=== PATIENT | male | born 1955 | race Caucasian/White ===

== ENCOUNTER → 2017-02-18 | Outpatient (REF) | payer OTHER ==
[2017-02-18 12:44] LABS: ANION GAP 4 MEQ/L (8-16); BLOOD UREA NITROGEN 18 MG/DL (7-18); CALCIUM LEVEL 9.1 MG/DL (8.8-10.2); CARBON DIOXIDE LEVEL 36 MEQ/L (21-32); CHLORIDE LEVEL 105 MEQ/L (98-107); CREATININE FOR GFR 0.93 MG/DL (0.70-1.30); GLOMERULAR FILTRATION RATE > 60.0 (>49); GLUCOSE, FASTING 95 MG/DL (80-110); POTASSIUM SERUM 4.1 MEQ/L (3.5-5.1); SODIUM LEVEL 145 MEQ/L (136-145)
== END ==
LOC: M LABDRAW1 11:59
PROVIDERS: ATTEND Physician Assistant
DX: Z01.818 Encounter for other preprocedural examination (principal); Z79.899 Other long term (current) drug therapy

== ENCOUNTER → 2017-07-18 | Outpatient (CLI) | payer OTHER ==
--- NOTE | 2017-07-19 11:59 | SLEEPCENT ---
DATE OF PROCEDURE: 07/18/2017 REQUESTING PROVIDER: Katlyn Ott NP INTERPRETATION: Nocturnal polysomnography was performed for evaluation of sleep physiology in this patient with a history of excessive somnolence and nonrestorative sleep. 7 hours and 14 minutes of data were reviewed. There were 320 minutes of sleep identified. Sleep latency was normal at 13 minutes. Rapid eye movement (REM) latency was normal at 90 minutes. Sleep architecture showed fragmentation, poor sleep progression. There were three REM cycles noted. Overall sleep efficiency was 74.7%. Electrocardiogram (EKG) showed an irregular rhythm consistent with atrial fibrillation, ventricular response rate 75 beats per minute. Electroencephalogram (EEG) showed fairly normal waveforms for awake and sleep stages. There were 239 respiratory events identified of 10 seconds in duration or greater for an apnea-hypopnea index of 44.7. The events were not exclusive to sleep stage nor body posture. Arousals from respiratory events occurred 27.7 times per hour. Oxygen desaturations were seen into the 80s. Minimal limb activity was noted. There was snoring noted over the course of the study. The remaining measures of sleep physiology were normal. IMPRESSION: Severe obstructive sleep apnea syndrome (G47.33). Apnea-hypopnea index of 44.7. RECOMMENDATIONS: The patient should be encouraged to return to the sleep disorder center for pressure therapy. In the interim, alcohol and sedative avoidance should be practiced and caution exercised during the operation of motor vehicles.
== END ==
LOC: M SLEEP 19:40
PROVIDERS: ATTEND Nurse Practitioner Adult Health
DX: G47.30 Sleep apnea, unspecified (principal)

== ENCOUNTER 2017-08-09 16:45 | Emergency (ER) | payer OTHER ==
[~2017-08-09] VITALS: Ht 167.6 cm; Wt 113.6 kg
[2017-08-09] MEDS ORDERED: ATOR40TA75 (16:57)
[2017-08-09] MEDS ORDERED: LEVE1INJ5 (16:57)
[2017-08-09] MEDS ORDERED: IRBE75TA5 (16:57)
[2017-08-09] MEDS ORDERED: MODU5TA (16:57)
[2017-08-09] MEDS ORDERED: XARE20TA (16:57)
[2017-08-09] MEDS ORDERED: LUTE20CA PO (16:57)
[2017-08-09] MEDS ORDERED: [UNRECOGNIZED DRUG - OTHER] (16:57)
[2017-08-09] MEDS ORDERED: PIOG30TA4 (16:57)
[2017-08-09] MEDS ORDERED: SODI650T (16:57)
[2017-08-09] MEDS ORDERED: FISH100049 PO (16:57)
[2017-08-09] MEDS ORDERED: BYET10IN2 (16:57)
[2017-08-09] MEDS ORDERED: NADO80TA (16:57)
[2017-08-09] MEDS ORDERED: ASPI81TA85 PO (16:58)
[2017-08-09] MEDS ORDERED: VITASPR PO (16:58)
[2017-08-09 18:11] LABS: BASO % 0.2 % (0.0-1.0); EOS # 0.1 10^3/uL (0.0-0.50); EOS % 0.8 % (0.0-3.0); IMMATURE GRANULOCYTE % 0.1 % (0-0); LYMPH % 10.3 % (24.0-44.0); MEAN CORPUSCULAR HGB CONC 34.4 g/dl (32.0-36.5); MEAN CORPUSCULAR VOLUME 87.2 fl (80.0-96.0); MONO # 0.6 10^3/uL (0.0-0.8); MONO % 6.5 % (0.0-5.0); NEUTROPHILS # 7.9 10^3/uL (1.8-7.7); NEUTROPHILS % 82.1 % (36.0-66.0); PLATELET COUNT, AUTOMATED 161 10^3/uL (150-450); RED CELL DISTRIBUTION WIDTH 14.1 % (11.5-14.5); WHITE BLOOD COUNT 9.6 10^3/uL (4.0-10.0)
[2017-08-09 18:39] LABS: ALBUMIN 3.8 GM/DL (3.2-5.2); ALBUMIN/GLOBULIN RATIO 1.36 (1.00-1.93); ALKALINE PHOSPHATASE 101 U/L (45-117); ALT/SGPT 34 U/L (12-78); ANION GAP 10 MEQ/L (8-16); AST/SGOT 27 U/L (7-37); BILIRUBIN,DIRECT 0.2 MG/DL (0.0-0.2); BILIRUBIN,TOTAL 1.1 MG/DL (0.2-1.0); BLOOD UREA NITROGEN 19 MG/DL (7-18); CALCIUM LEVEL 9.1 MG/DL (8.8-10.2); CARBON DIOXIDE LEVEL 26 MEQ/L (21-32); CHLORIDE LEVEL 106 MEQ/L (98-107); CREATININE FOR GFR 1.11 MG/DL (0.70-1.30); GLOMERULAR FILTRATION RATE > 60.0 (>49); GLUCOSE, FASTING 135 MG/DL (80-110); POTASSIUM SERUM 3.5 MEQ/L (3.5-5.1); SODIUM LEVEL 142 MEQ/L (136-145); TOTAL PROTEIN 6.6 GM/DL (6.4-8.2)
[2017-08-09 18:40] LABS: OSMOLALITY SERUM 296 MOSM/KG (280-301)
--- NOTE | 2017-08-09 18:43 | REP ---
AP PORTABLE CHEST: 08/09/2017. Clinical history: Altered mental status. Findings: No prior study. Lordotic AP portable chest performed. Heart size exaggerated by lordotic and AP projections with portable technique. No gross effusion. There is elevation of the right diaphragm. The aorta is without aneurysm. Airway midline. No abnormal widening the mediastinum. There is venous hypertension without pulmonary edema. No dense consolidation or mass. Impression: 1. Pulmonary venous hypertension, the cardiac silhouette mildly enlarged with some exaggeration by lordotic projection. No jimi edema, effusion or dense consolidation. Limited evaluation of the posterior and lower lung zones because of the lordotic portable technique. PA and lateral may be helpful when the patient is able. Signed by Justyn Dinero MD 08/09/2017 08:06 P
[2017-08-09 19:54] VITALS: BP 118/56
--- NOTE | 2017-08-11 04:28 | ECGEPIP ---
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
== END 2017-08-09 19:55 | disposition home or self-care (01) ==
LOC: M ED 16:45
DX: E16.1 Other hypoglycemia (principal); I48.91 Unspecified atrial fibrillation; I45.10 Unspecified right bundle-branch block; R94.31 Abnormal electrocardiogram [ECG] [EKG]; E11.9 Type 2 diabetes mellitus without complications; Z79.82 Long term (current) use of aspirin; Z79.4 Long term (current) use of insulin; Z79.899 Other long term (current) drug therapy; Z88.2 Allergy status to sulfonamides

== ENCOUNTER → 2017-09-08 | Outpatient (CLI) | payer OTHER | LOC: M SLEEP 19:51 | DX: G47.33 Obstructive sleep apnea (adult) (pediatric) (principal) | CPT/HCPCS: 95811 ==

== ENCOUNTER → 2017-11-24 | Outpatient (REF) | payer OTHER ==
[2017-11-24 13:44] LABS: APPEARANCE, URINE TURBID (CLEAR); BACTERIA, URINE AUTO NEGATIVE (NEGATIVE); BILIRUBIN, URINE AUTO NEGATIVE (NEGATIVE); BLOOD, URINE BLOOD NEGATIVE (NEGATIVE); COLOR, URINE AMBER (YELLOW); GLUCOSE, URINE (UA) AUTO NEGATIVE (NEGATIVE); KETONE, URINE AUTO TRACE mg/dL (NEGATIVE); LEUKOCYTE ESTERASE, URINE AUTO TRACE (NEGATIVE); MUCUS, URINE SMALL (NEGATIVE); NITRITE, URINE AUTO NEGATIVE (NEGATIVE); PROTEIN, URINE AUTO NEGATIVE (NEGATIVE); RBC, URINE AUTO 3 /HPF (0-3); SPECIFIC GRAVITY URINE AUTO 1.025 (1.002-1.035); SQUAMOUS EPITHELIAL CELL UR AU 1 /HPF (0-6); UROBILINOGEN, URINE AUTO 0.2 mg/dL (0.0-2.0); WBC, URINE AUTO 2 /HPF (0-3)
== END ==
LOC: M LAB REF 13:25
DX: R31.9 Hematuria, unspecified (principal)
CPT/HCPCS: 81001

== ENCOUNTER → 2018-05-09 | Outpatient (REF) | payer OTHER ==
[2018-05-09 14:40] LABS: ATYPICAL LYMPH 8 % (0-5); BANDS 4 % (< 11); EOSINOPHILS 1 % (0-5); LYMPHOCYTES 4 % (16-52); MONOCYTES 14 % (0-8); NEUTROPHILS 69 % (35-75)
[2018-05-09 14:41] LABS: GIANT PLATELETS 1+; PLATELET ESTIMATE DECREASED (NORMAL)
== END ==
LOC: M LAB REF 12:01
DX: N39.0 Urinary tract infection, site not specified (principal)
CPT/HCPCS: 85007

== ENCOUNTER → 2018-05-26 | Outpatient (REF) | payer OTHER ==
[2018-05-26 11:51] LABS: BASO % 0.5 % (0.0-1.0); EOS # 0.1 10^3/uL (0.0-0.50); EOS % 1.3 % (0.0-3.0); HEMATOCRIT 49.2 % (42.0-52.0); HEMOGLOBIN 16.1 g/dl (13.5-17.5); IMMATURE GRANULOCYTE % 0.5 % (0-3.0); LYMPH # 1.3 10^3/uL (1.5-4.5); LYMPH % 17.3 % (24.0-44.0); MEAN CORPUSCULAR HEMOGLOBIN 29.3 pg (27.0-33.0); MEAN CORPUSCULAR HGB CONC 32.7 g/dl (32.0-36.5); MEAN CORPUSCULAR VOLUME 89.6 fl (80.0-96.0); MONO # 0.7 10^3/uL (0.0-0.8); MONO % 9.7 % (0.0-5.0); NEUTROPHILS # 5.3 10^3/uL (1.8-7.7); NEUTROPHILS % 70.7 % (36.0-66.0); PLATELET COUNT, AUTOMATED 211 10^3/uL (150-450); RED BLOOD COUNT 5.49 10^6/uL (4.30-6.10); RED CELL DISTRIBUTION WIDTH 14.5 % (11.5-14.5); WHITE BLOOD COUNT 7.6 10^3/uL (4.0-10.0)
[2018-05-26 12:44] LABS: ERYTHROCYTE SEDIMENTATION RATE 5 mm/hr (0-20)
[2018-05-26 14:21] LABS: C REACTIVE PROTEIN QUANTITATIV < 0.30 MG/DL (0.00-0.30); RHEUMATOID FACTOR QUANT < 10.0 IU/ML (<15.0)
[2018-05-26 14:21] LABS: URIC ACID 5.8 MG/DL (3.5-7.2)
[2018-05-27 14:23] LABS: ANTINUCLEAR ANTIBODIES DIRECT Negative (Negative); Lyme Disease IgG/IgM Antibodie <0.91 ISR (0.00-0.90); Lyme Disease IgM Ab Quantitati <0.80 index (0.00-0.79)
== END ==
LOC: M LABDRAW1 10:01
DX: M17.0 Bilateral primary osteoarthritis of knee (principal)

== ENCOUNTER → 2018-08-24 | Outpatient (REF) | payer OTHER ==
[~2018-08-24] MED LIST: ASPI81TA85 PO; ATOR40TA75; BYET10IN10; FISH100049 PO; IRBE75TA5; LEVE1INJ5; LUTE20CA PO; MODU5TA; NADO80TA; PIOG1TAB37; SODI650T; VITASPR PO; XARE20TA; [UNRECOGNIZED DRUG - OTHER]
[2018-08-24 12:19] LABS: APPEARANCE, URINE CLEAR (CLEAR); BACTERIA, URINE AUTO NEGATIVE (NEGATIVE); BILIRUBIN, URINE AUTO NEGATIVE (NEGATIVE); BLOOD, URINE BLOOD NEGATIVE (NEGATIVE); COLOR, URINE YELLOW (YELLOW); GLUCOSE, URINE (UA) AUTO NEGATIVE (NEGATIVE); INR 2.16; KETONE, URINE AUTO NEGATIVE (NEGATIVE); LEUKOCYTE ESTERASE, URINE AUTO 1+ (NEGATIVE); MUCUS, URINE SMALL (NEGATIVE); NITRITE, URINE AUTO NEGATIVE (NEGATIVE); PROTEIN, URINE AUTO NEGATIVE (NEGATIVE); PROTHROMBIN TIME 24.5 SECONDS (12.1-14.4); RBC, URINE AUTO 3 /HPF (0-3); SPECIFIC GRAVITY URINE AUTO 1.024 (1.002-1.035); SQUAMOUS EPITHELIAL CELL UR AU 1 /HPF (0-6); UROBILINOGEN, URINE AUTO 0.2 mg/dL (0.0-2.0); WBC, URINE AUTO 10 /HPF (0-3)
[2018-08-24 12:20] LABS: PARTIAL THROMBOPLASTIN TIME 41.8 SECONDS (25.4-37.6)
== END ==
LOC: M LAB REF 11:42
PROVIDERS: ATTEND Family Medicine
DX: Z01.818 Encounter for other preprocedural examination (principal)

== ENCOUNTER → 2018-10-05 | Outpatient (CLI) | payer OTHER ==
[~2018-10-05] MED LIST changes: +ACTO30TA15 PO; -ATOR40TA75; +ATOR40TA75 PO; -BYET10IN10; +BYET10IN10 SC; -IRBE75TA5; +IRBE75TA5 PO; -LEVE1INJ5; +LEVE1INJ5 SC; -MODU5TA; +MODU5TA PO; -NADO80TA; +NADO80TA PO; -PIOG1TAB37; +PIOG1TAB37 PO; +PRESCAP PO; -SODI650T; +SODI650T PO; -XARE20TA; +XARE20TA PO
[2018-10-05 10:17] LABS: HEMATOCRIT 48.1 % (42.0-52.0); HEMOGLOBIN 16.1 g/dl (13.5-17.5); MEAN CORPUSCULAR HEMOGLOBIN 29.8 pg (27.0-33.0); MEAN CORPUSCULAR HGB CONC 33.5 g/dl (32.0-36.5); MEAN CORPUSCULAR VOLUME 89.1 fl (80.0-96.0); PLATELET COUNT, AUTOMATED 179 10^3/uL (150-450); WHITE BLOOD COUNT 5.2 10^3/uL (4.0-10.0)
[2018-10-05 10:37] LABS: INR 1.92; PROTHROMBIN TIME 22.3 SECONDS (12.1-14.4)
[2018-10-05 10:42] LABS: ALBUMIN 3.7 GM/DL (3.2-5.2); ALT/SGPT 23 U/L (12-78); BILIRUBIN,TOTAL 0.8 MG/DL (0.2-1.0); BLOOD UREA NITROGEN 14 MG/DL (7-18); CALCIUM LEVEL 9.2 MG/DL (8.8-10.2); CARBON DIOXIDE LEVEL 32 MEQ/L (21-32); CHLORIDE LEVEL 103 MEQ/L (98-107); CREATININE FOR GFR 0.98 MG/DL (0.70-1.30); GLOMERULAR FILTRATION RATE > 60.0 (>49); GLUCOSE, FASTING 98 MG/DL (70-100); POTASSIUM SERUM 3.9 MEQ/L (3.5-5.1); SODIUM LEVEL 141 MEQ/L (136-145); TOTAL PROTEIN 6.5 GM/DL (6.4-8.2)
[2018-10-05 10:53] LABS: ERYTHROCYTE SEDIMENTATION RATE 6 mm/hr (0-20)
--- NOTE | 2018-10-06 01:55 | REP ---
Clinical: Arthritis . Comparison: 08/09/2017 . Technique: PA and lateral. Findings: The mediastinum and cardiac silhouette are normal. The lung joy are clear and without acute consolidation, effusion, or pneumothorax. The skeletal structures are intact and normal. Impression: 1. No acute cardiopulmonary process. Electronically Signed by Rodney Hart MD 10/06/2018 01:47 A
--- NOTE | 2018-10-06 08:35 | ECGEPIP ---
Stationary ECG Study [facility] Test Date: 2018-10-05 Pat Name: BRITNI HANDLEY Department: Room: - Gender: M Pressurised Container Filler: DARLENE : 1955 Requested By: Zeyad Crum Order Number: [id number] Reading MD: Edmund Moore Measurements Intervals [place] Rate: 75 P: PA: 0 QRS: 114 QRSD: 154 T: -5 QT: 404 QTc: 452 Interpretive Statements ATRIAL FIBRILLATION MARKED RIGHT AXIS DEVIATION, LEFT POSTERIOR HEMIBLOCK RIGHT BUNDLE BRANCH BLOCK, NO CHANGE SINCE 08/09/17 Electronically Signed On 10-06-2018 8:35:27 EST by Edmund Moore
== END ==
LOC: M LAB 09:24
PROVIDERS: ATTEND Family Medicine
DX: Z01.818 Encounter for other preprocedural examination (principal); I48.91 Unspecified atrial fibrillation; E11.9 Type 2 diabetes mellitus without complications; Z87.442 Personal history of urinary calculi; Z79.01 Long term (current) use of anticoagulants; M17.11 Unilateral primary osteoarthritis, right knee

== ENCOUNTER 2018-10-17 09:56 | Inpatient (IN) | payer OTHER ==
--- NOTE | 2018-10-12 14:48 | HPE ---
DATE OF ADMISSION: 10/17/2018 This is a pleasant, 63-year-old male with continuing symptomatic right knee osteoarthritis. He consented for a right total knee arthroplasty per Dr. Neal Rice. Medical optimization was performed with Dr. Santillan on 10/09/2018. Per patient, he was cleared. I am awaiting documentation. X-rays are consistent with advanced osteoarthritis. ALLERGIES TO DRUGS: SULFA. MEDICATION LIST: - hydrocortisone cream 10% - atorvastatin calcium 40 mg - irbesartan 75 mg - nadolol 80 mg - pioglitazone HCl 30 mg - fish oil - Lutein 20 mg - Levemir 100 unit/mL - sodium bicarbonate 650 mg - Xarelto 20 mg - aspirin low dose 81 mg - potassium - PreserVision AREDS 2 - Restasis 0.05% - amiloride-hydrochlorothiazide 5-50 mg - vitamin D 2000 units. - Byetta 10 10 mcg/0.04 mL MEDICAL PROBLEM LIST: 1. Symptomatic right knee osteoarthritis. 2. Type 2 diabetes, insulin dependent. 3. Pure hypercholesteremia. 4. Essential hypertension. 5. Kidney disease. 6. Atrial fibrillation. PAST SURGICAL HISTORY: 1. Right Achilles repair. 2. Inguinal hernia repair. 3. Hernia repair both sides, one as an , the other in late 20s. 4. Kidney stone removal. 5. Carpal tunnel release. SOCIAL HISTORY: Never smoked. Rare ethanol intake. FAMILY HISTORY: Diabetes, hypertension, hypercholesteremia, heart disease, skin cancer, thyroid disease, dementia. REVIEW OF SYSTEMS: Denies chest pain, shortness of breath, dyspnea on exertion, fever, chills, malaise, upper respiratory or urinary tract symptoms. PHYSICAL EXAMINATION: Height 5, 6-1/2, blood pressure 130/62, weight 260.8, pulse 62, temperature 98.0, respirations 16. This is a pleasant well-developed, well-nourished, obese male, in no acute distress, alert and oriented times three. Mood and affect are appropriate. He is ambulating with favoring of his left lower extremity. Antalgic noted about his right. Bilateral lower extremity skin intact, benign, noninfectious looking. Compartments are supple, soft, nontender. Palpation grossly intact to light touch. Negative calf tenderness. Homans' sign, palpable cords. Bowel times four, soft, nontender. Chest rises symmetrically. Regular rate and rhythm. No dyspnea on exertion. Lungs clear. Otherwise, neck supple. Negative jugular venous distention (JVD) or bruits. Labs acquired were reviewed from 10/05/2018 included CBC, sed rate, CPA, ProTime and INR. Anion gap was 6. ProTime 22.3. Otherwise, unremarkable. Please note GFR is greater than 60. Chest x-ray: No acute cardiopulmonary process. Date of service [facility] as read by Dr. Hart. EKG: Atrial fibrillation, marked right axis deviation, left posterior hemiblock, right bundle branch block. No change since 08/09/[address] Edmund Moore. IMPRESSION: 1. Symptomatic right knee osteoarthritis. 2. Patient consented for a right total knee arthroplasty per Dr. Neal Rice. 3. Medical optimization was completed with Dr. Santillan on 10/09/2018. We are still awaiting documentation. 4. On-call to operating room (OR) 2 grams IV Kefzol in OR. 5. Sequential compressive device (SCD) and thromboembolism deterrents (TEDs) in OR. MTDD
[~2018-10-17] VITALS: Ht 167.6 cm; Wt 117.9 kg
[2018-10-17] MEDS: aMILoride 5 MG TAB PO SCH (09:00)
[2018-10-17] MEDS: hydroCHLOROthiazide 25 MG TAB PO SCH (09:00)
[2018-10-17] MEDS: NADOLOL 20MG TABLET PO SCH (09:00)
[2018-10-17] MEDS: IRBESARTAN 150 MG TAB PO SCH (09:00)
[2018-10-17] MEDS: ATORVASTATIN 20 MG TAB PO SCH (09:00)
[~2018-10-17 09:56] MED LIST changes: +BUPIVACAINE LIPOSOME/PF 1.3% 20ML VIAL (13.3MG/ML)(EXPAREL)(C9290 PER1MG) As Ordered ONE; +EPINEPHrine INJ 1 MG/ML 1ML AMP As Ordered ONE; +TRANEXAMIC ACID 100 MG/ML 10ML VIAL As Ordered ONE; +ceFAZolin 1GM INJ (J0690 PER 500MG) As Ordered ONE
[2018-10-17] MEDS ORDERED: LR 1,000 ML IV ONE (10:15)
[2018-10-17] MEDS ORDERED: TRUL10IN SC (10:38)
[2018-10-17] MEDS ORDERED: MUPI2OI (10:38)
[2018-10-17] MEDS ORDERED: ceFAZolin SOD 1 GM in D5W MINI-BAG PLUS 50 ML IV ONE (10:55)
[2018-10-17] MEDS ORDERED: MIDAZOLAM INJ 2 MG/2 ML VIAL (J2250) As Ordered ONE ×2 (11:26→11:57)
[2018-10-17] MEDS ORDERED: fentaNYL 100 MCG/2 ML INJECTION (J3010) As Ordered ONE ×2 (11:26→11:57)
[2018-10-17] MEDS ORDERED: BUPIVACAINE/DEXTROSE 0.75% 2 ML AMP As Ordered ONE (11:57)
[2018-10-17] MEDS ORDERED: ONDANSETRON 4MG/2ML VIAL (J2405) As Ordered ONE (11:57)
[2018-10-17] MEDS ORDERED: LIDOCAINE 2% INJ 100 MG/5 ML SDV (FOR ANES.) As Ordered ONE (11:57)
[2018-10-17] MEDS ORDERED: PROPOFOL 500 MG/50 ML VIAL As Ordered ONE ×2 (11:57→13:23)
--- NOTE | 2018-10-17 12:29 | IPN ---
DATE: 10/17/2018 Patient seen and examined. He wishes to go ahead with a right total knee arthroplasty. He has significant osteoarthritis, which has been refractory to conservative management. He understands the nature of this, the risks of bleeding, infection, damage to nerves, vessels, persistent pain, wear loosening, blood clots, medical problems, , among others. Preop clearance was obtained. He understands that his weight has a significant factor in the increased risk associated with knee replacement such as infection, deep venous thrombosis (DVT), medical problems, etc.
[2018-10-17] MEDS ORDERED: MIDAZOLAM INJ 2 MG/2 ML VIAL (J2250) IV ONE (12:30)
[2018-10-17] MEDS ORDERED: fentaNYL 100 MCG/2 ML INJECTION (J3010) IV ONE (12:30)
[2018-10-17] MEDS ORDERED: PHENYLephrine HCL 500 MCG/5 ML (100MCG/ML) SYRINGE (J2370) As Ordered ONE ×2 (12:51→13:08)
[2018-10-17] MEDS ORDERED: PHENYLEPHRINE INJ 10MG/ML VIAL (J2370) As Ordered ONE (13:45)
[2018-10-17] MEDS ORDERED: dexameTHASONE 10 MG/1 ML VIAL PRES.FREE (J1100) ONE (14:21)
[2018-10-17] MEDS ORDERED: ROPIvacaine 0.5% 30 ML INJECTION (J2795 PER 1MG) ONE (14:21)
[2018-10-17] MEDS ORDERED: MORPHINE 4 MG/ML 1ML VIAL/SYRINGE (J2270) IV PRN ×2 (14:30)
[2018-10-17] MEDS ORDERED: ONDANSETRON 4MG/2ML VIAL (J2405) IV PRN ×2 (14:30)
[2018-10-17] MEDS ORDERED: LR 1,000 ML IV SCH ×2 (14:30)
[2018-10-17] MEDS ORDERED: fentaNYL 100 MCG/2 ML INJECTION (J3010) IV PRN (14:30)
[2018-10-17] MEDS ORDERED: PERCOCET 5MG/325MG TAB PO PRN (14:30)
[2018-10-17] MEDS ORDERED: FLEET ENEMA PR PRN (14:30)
[2018-10-17] MEDS ORDERED: ACETAMINOPHEN TAB 650MG DOSE (2X325MG) PO PRN (14:30)
--- NOTE | 2018-10-17 15:28 | REP ---
AP AND LATERAL RIGHT KNEE, TWO VIEWS: HISTORY: Postoperative. The patient is status post right total knee replacement. There is no acute fracture or dislocation. Subcutaneous air and surgical roman are present in the overlying soft tissue. IMPRESSION: The patient is status post right total knee replacement. There is anatomic alignment. Electronically Signed by Tremayne Girard MD 10/17/2018 03:32 P
[2018-10-17 15:30] VITALS: BP 127/94
[2018-10-17 16:00] VITALS: BP 125/90
--- NOTE | 2018-10-17 16:51 | CR ---
DATE OF CONSULTATION: 10/17/2018 This is a 63-year-old male with a past medical history of diabetes, hypertension, hyperlipidemia, atrial fibrillation who presents to this hospitalization for right total knee replacement, done successfully by Dr. Rice. Reason for consultation is postoperative medical management. The patient at this time is doing well. Denies any chest pain, shortness of breath, palpitations, abdominal pain, nausea, or vomiting and did have his first postoperative meal. PAST MEDICAL HISTORY: 1. Right knee osteoarthritis. 2. Type 2 diabetes. 3. Hyperlipidemia. 4. Hypertension. 5. Atrial fibrillation. PAST SURGICAL HISTORY: 1. Right Achilles repair. 2. Inguinal hernia repair. 3. Carpal tunnel release. DRUG ALLERGIES: SULFA MEDICATIONS. FAMILY HISTORY: Noncontributory. SOCIAL HISTORY: Patient denies tobacco, alcohol, or illicit drugs. HOME MEDICATIONS: - amiloride/hydrochlorothiazide 5/50 one tablet orally daily - aspirin 81 mg orally daily - atorvastatin 40 mg orally daily - cholecalciferol 2000 units orally daily - fish oil one capsule orally daily - insulin detemir 50 units subcutaneous twice a day - irbesartan 75 mg orally daily - multivitamin one tablet orally daily - nadolol 120 mg orally daily - pioglitazone 30 mg orally daily - potassium bicarbonate 25 mg twice daily - rivaroxaban 20 mg orally daily - sodium bicarbonate 650 mg orally three times a day - Trulicity 0.75 mg subcutaneous every 7 days REVIEW OF SYSTEMS: Negative for [id number] systems except what is mentioned in the history of present illness (HPI). VITAL SIGNS: Blood pressure 127/94, heart rate 93 and regular, respiratory rate 20, temperature 96.9, oxygen saturation 99% on room air. HEAD: Atraumatic, normocephalic. NECK: Supple. No jugular venous distention (JVD). LUNGS: Clear to auscultation. S1, S2 audible. No murmurs appreciated. ABDOMEN: Soft. Positive bowel sounds. No pedal edema. NEUROLOGIC: Patient awake, alert, oriented times three. There are no labs to address at this time. IMPRESSION: 1. Right total knee replacement. 2. Atrial fibrillation. 3. Diabetes. 4. Hyperlipidemia. 5. Hypertension. PLAN: Patient at this time has no acute medical issues, so no acute intervention necessary. I will reconcile his medications and recommend morning labs. Will continue following the patient's care alongside orthopedics.
[2018-10-17 17:00] VITALS: BP 135/89
[2018-10-17] MEDS ORDERED: PILL CRUSHER/CUTTER 1 EACH XX PRN (17:00)
[2018-10-17] MEDS: SODIUM BICARBONATE 325 MG TAB PO SCH ×2 (17:43→21:16)
[2018-10-17] MEDS: PERCOCET 5MG/325MG TAB PO PRN ×2 (17:44→22:02)
[2018-10-17 18:00] VITALS: BP 146/96
[2018-10-17 19:00] VITALS: BP 131/96
[2018-10-17] MEDS ORDERED: GLUCAGON FOR INJ 1 MG VIAL (J1610) SC PRN (19:30)
[2018-10-17] MEDS ORDERED: DEXTROSE 50% 50 ML SYRINGE IV PRN (19:30)
[2018-10-17] MEDS ORDERED: GLUCOSE 4 GM CHEW TABLET PO PRN (19:30)
[2018-10-17 20:00] VITALS: BP 128/87
[2018-10-17] MEDS ORDERED: HumaLOG INSULIN (NovoLOG) PER UNIT SC SCH (21:00)
[2018-10-17] MEDS: LEVEMIR (INSULIN DETEMIR) 1 UNITS/0.01ML SC SCH (21:16)
[2018-10-17] MEDS: ceFAZolin SOD 1 GM in D5W MINI-BAG PLUS 50 ML IV SCH (22:01)
[2018-10-18 02:00] VITALS: BP 125/71
[2018-10-18] MEDS: PERCOCET 5MG/325MG TAB PO PRN ×3 (02:23→11:04)
[2018-10-18 06:00] VITALS: BP 119/76
[2018-10-18] MEDS: ceFAZolin SOD 1 GM in D5W MINI-BAG PLUS 50 ML IV SCH (06:29)
[2018-10-18 06:31] LABS: HEMOGLOBIN 14.9 g/dl (13.5-17.5); MEAN CORPUSCULAR HEMOGLOBIN 29.2 pg (27.0-33.0); MEAN CORPUSCULAR HGB CONC 33.1 g/dl (32.0-36.5); MEAN CORPUSCULAR VOLUME 88.2 fl (80.0-96.0); PLATELET COUNT, AUTOMATED 168 10^3/uL (150-450); WHITE BLOOD COUNT 13.9 10^3/uL (4.0-10.0)
[2018-10-18] MEDS ORDERED: PERC5TAB12 PO (06:46)
[2018-10-18] MEDS ORDERED: HumaLOG INSULIN (NovoLOG) PER UNIT SC SCH (07:30)
[2018-10-18] MEDS: ATORVASTATIN 20 MG TAB PO SCH (08:17)
[2018-10-18] MEDS: aMILoride 5 MG TAB PO SCH (08:17)
[2018-10-18] MEDS: hydroCHLOROthiazide 25 MG TAB PO SCH (08:17)
[2018-10-18] MEDS: SODIUM BICARBONATE 325 MG TAB PO SCH (08:18)
[2018-10-18 08:22] VITALS: BP 140/83
[2018-10-18] MEDS: IRBESARTAN 150 MG TAB PO SCH (08:22)
[2018-10-18] MEDS: NADOLOL 20MG TABLET PO SCH (08:23)
[2018-10-18] MEDS ORDERED: MIRALAX *UNIT DOSE* 17GM PACKET PO SCH (09:00)
[2018-10-18] MEDS ORDERED: ASPIRIN 81 MG ENTERIC TAB PO SCH (09:00)
[2018-10-18] MEDS ORDERED: OMEGA-3 1000MG CAPSULE PO SCH (09:00)
[2018-10-18] MEDS: LEVEMIR (INSULIN DETEMIR) 1 UNITS/0.01ML SC SCH (09:00)
[2018-10-18] MEDS ORDERED: RIVAROXABAN 20 MG TAB (XARELTO) PO SCH ×2 (09:00→18:00)
[2018-10-18] MEDS ORDERED: OCUVITE 1 TAB PO SCH (09:00)
[2018-10-18] MEDS ORDERED: MOM 30ML SUSPENSION UDC PO SCH (09:00)
--- NOTE | 2018-10-18 13:49 | RO ---
DATE OF PROCEDURE: 10/17/2018 PREOPERATIVE DIAGNOSIS: Right knee osteoarthritis. POSTOPERATIVE DIAGNOSIS: Right knee osteoarthritis. PROCEDURE: Right total knee arthroplasty using an Attune knee, size 6 femur, size 6 tibia, 12 polyethylene, 35 patellar button cruciate-retaining rotating platform. SURGEON: Neal Rice MD PRODUCT SAFETY AND STANDARDS ENGINEER: WM Benoit ANESTHESIA: Spinal ESTIMATED BLOOD LOSS: Less than 50. COMPLICATIONS: None. INDICATIONS: 63-year-old gentleman with morbid obesity and a BMI of 40 who has had gradually worsening right knee pain and severe arthritis on x-rays. He wished to go ahead with a knee replacement, having failed conservative management. He understood the nature this, the risks of bleeding, infection, damage to nerves, vessels, persistent pain, wear loosening, blood clots, medical problems, among others. PROCEDURE: The patient taken to the operating room and placed in supine position after spinal anesthesia was induced. The right lower extremity was prepped and draped in usual sterile fashion. Time-out was performed. Tourniquet was inflated. A longitudinal incision made over the anterior aspect of the knee. Medial parapatellar arthrotomy was performed, everted the patella, used the canal initiating reamer to make a hole in the femur, followed by the intramedullary guide set at 5 degrees of valgus, 9 mm cut. This was pinned in place by the assistant chief nursing officer and the distal femoral cut was made, protecting soft tissues. I removed some osteophytes. I then sized the femur to be a 6, and the drill holes were placed in the end of the femur and with the appropriate amount of external rotation. The cutting block was secured and the remaining cuts were made. The excess bone was removed. We then prepared the tibial surface. The tibial alignment guide was placed with the appropriate amount posterior slope and valgus, pinned in place at about 4 mm off the medial side, which was low side, and the external alignment guide was then used. I then made the proximal tibia cut removing the bone. We used a laser specialist to remove soft tissue and osteophytes from either side of the knee and then prepared the tibial surface. The tibial tray was sized to be a 6. I had done a medial release and the drill and broach were used on the tibial tray. We used spacer blocks and determined that it was either a 10 or a 12 polyethylene thickness was going to be the most appropriate. Trial components were placed, and I was very satisfied with the 12 polyethylene. The PCL was intact. He had excellent stability in alignment and varus valgus and anterior-posterior translation. Good range of motion noted. His soft tissues did impinge due to his obesity with flexion beyond about 100 degrees. I then freehand cut the patella, removing about 7 mm of bone, drilled a hole in the patella, put the patellar button. Did have to do somewhat of a lateral release just due to some mild tracking issues, and I drilled the end of the femur as well. I was pleased with the overall alignment on tracking and position of the components. I then removed the trial components. The assistant chief nursing officer prepared the bone cement in the modern technique. I irrigated, placed some Exparel in the deep tissues. Dried the bony surfaces, cemented on the tibial side, placed the polyethylene, cemented on the femoral side. All the excess bone was removed, cemented on the patella, held this in place with a clamp until the cement hardened. I copiously irrigated, placed the TXA deep in the tissues and also placed the remaining Exparel deep. The final deep irrigation was performed and closed the deep layer with a #1 Vicryl suture in interrupted fashion, followed by running Stratafix suture in both directions. I then put the knee through a range of motion. Excellent stability and alignment was noted. There was no clicking and the patella tracked well. I then irrigated, closed the subcutaneous with #2-0 Vicryl, skin with roman. Sterile dressing was applied. Tourniquet was deflated, and he was taken to the recovery room in stable condition. There were no known complications. The plan will be routine postop. This was coded as unusually difficult procedure. It took extra time due to his morbid obesity. The dissection took longer and it took longer to maintain exposure. The assistant chief nursing officer was instrumental in holding retractors and assisting in mixing the bone cement, making one of the distal femoral cuts under my direct supervision and assisting in wound closure.
--- NOTE | 2018-10-20 15:44 | DSES ---
DATE OF ADMISSION: 10/17/2018 DATE OF DISCHARGE: 10/18/2018 ADMISSION DIAGNOSIS: Osteoarthritis, right knee. OTHER DIAGNOSES: 1. Diabetes, type 2. 2. Hyperlipidemia. 3. Hypertension. 4. Atrial fibrillation. DISCHARGE DIAGNOSIS: Osteoarthritis right knee, status post right total knee arthroplasty. OPERATION PERFORMED: Right total knee arthroplasty. HISTORY: This is a pleasant 63-year-old male patient with progressively worsening right knee pain and stiffness. He failed to improve with conservative management. He was admitted for elective knee replacement on the right side. HOSPITAL COURSE: The patient was admitted on day of surgery and underwent a right total knee arthroplasty, which was uneventful. He did well in the postoperative period. His hospital course was without complications. On day of discharge, he was doing well, weightbearing as tolerated on his right lower extremity. He was discharged to home. He will move his right knee to prevent stiffness. He will use thromboembolic deterrent (MARCIA) stockings for 30 days postoperative for deep vein thrombosis (DVT)prophylaxis. He will use Xarelto 20 mg per the protocol for DVT prophylaxis. He will resume his preoperative medications and diet. He was given instructions to include, but not limited to, wound monitoring and activity limitations. He will followup in our office in 10-14 days for a surgical followup. Please refer to the medical record further details.
== END 2018-10-18 11:35 | disposition home or self-care (01) | DRG 470 ==
LOC: M OR 09:56 → M MS5PR 15:15
PROVIDERS: ADMIT Orthopaedic Surgery; ATTEND Orthopaedic Surgery
PROC: 0SRC0J9 Replacement of Right Knee Joint with Synthetic Substitute, Cemented, Open Approach (ICD-10-PCS; principal; 2018-10-17 12:30)
DX: M17.11 Unilateral primary osteoarthritis, right knee (principal); Z79.899 Other long term (current) drug therapy; Z88.2 Allergy status to sulfonamides; Z79.82 Long term (current) use of aspirin; E11.9 Type 2 diabetes mellitus without complications; E78.00 Pure hypercholesterolemia, unspecified; I12.9 Hypertensive chronic kidney disease with stage 1 through stage 4 chronic kidney disease, or unspecified chronic kidney disease; I48.91 Unspecified atrial fibrillation; N18.9 Chronic kidney disease, unspecified; E78.5 Hyperlipidemia, unspecified

== ENCOUNTER 2018-11-28 20:35 | Emergency (ER) | payer OTHER ==
[~2018-11-28] VITALS: Ht 167.6 cm; Wt 113.6 kg
[~2018-11-28 20:35] MED LIST changes: -BUPIVACAINE LIPOSOME/PF 1.3% 20ML VIAL (13.3MG/ML)(EXPAREL)(C9290 PER1MG) As Ordered ONE; -EPINEPHrine INJ 1 MG/ML 1ML AMP As Ordered ONE; +MUPI2OI; +PERC5TAB12 PO; -TRANEXAMIC ACID 100 MG/ML 10ML VIAL As Ordered ONE; +TRUL10IN SC; -ceFAZolin 1GM INJ (J0690 PER 500MG) As Ordered ONE
[2018-11-28] MEDS ORDERED: diazePAM 5 MG TAB PO ONE (22:15)
[2018-11-28] MEDS ORDERED: MORPHINE 4 MG/ML 1ML VIAL/SYRINGE (J2270) IM ONE (22:15)
[2018-11-28] MEDS ORDERED: ONDANSETRON 4 MG ORAL DISINTEGRATING TAB (Q0162 PER 1MG) PO ONE (22:30)
[2018-11-28 23:16] LABS: APPEARANCE, URINE CLEAR (CLEAR); BACTERIA, URINE AUTO NEGATIVE (NEGATIVE); BILIRUBIN, URINE AUTO NEGATIVE (NEGATIVE); BLOOD, URINE BLOOD NEGATIVE (NEGATIVE); COLOR, URINE YELLOW (YELLOW); GLUCOSE, URINE (UA) AUTO NEGATIVE (NEGATIVE); KETONE, URINE AUTO TRACE mg/dL (NEGATIVE); LEUKOCYTE ESTERASE, URINE AUTO NEGATIVE (NEGATIVE); MUCUS, URINE SMALL (NEGATIVE); NITRITE, URINE AUTO NEGATIVE (NEGATIVE); PROTEIN, URINE AUTO NEGATIVE (NEGATIVE); RBC, URINE AUTO 15 /HPF (0-3); SPECIFIC GRAVITY URINE AUTO 1.027 (1.002-1.035); SQUAMOUS EPITHELIAL CELL UR AU 0 /HPF (0-6); WBC, URINE AUTO 1 /HPF (0-3)
[2018-11-28] MEDS ORDERED: HYDROMORPHONE HCL 0.5 MG/ 0.5 ML SYRINGE (J1170 PER 1) IV ONE (23:45)
--- NOTE | 2018-11-29 00:06 | REP ---
Clinical: Right flank pain. Technique: Axial noncontrast images from the lung bases to the pubic symphysis with coronal and sagittal re-formations. Comparison: 02/01/2015. Findings: Right kidney includes 2.6 cm hypodensity compatible with cyst and no evidence for nephroureterolithiasis, perinephric stranding or hydroureteronephrosis. Left kidney includes 8 mm nonobstructing calculus without hydroureternephrosis, perinephric stranding or obstructing ureteral calculi. Bilateral ureters and bladder are normal. Liver, spleen, pancreas, gallbladder, and bilateral adrenal glands are normal. The enteric system is without obstruction or acute inflammatory process. Normal terminal ileum and appendix identified in the right lower quadrant. Pelvis demonstrates normal bladder and age appropriate prostate/seminal vesicles. No ascites. No free air. No adenopathy. Abdominal aorta without aneurysm. Musculoskeletal structures without focal osseous abnormality. Lung bases are clear. Impression: 1. 2.6 cm right renal hypodensity compatible with cyst and 8 mm nonobstructing left renal calculus. Urinary tract system is otherwise unremarkable. 2. No acute abdominopelvic pathology otherwise appreciated. Specifically, no ascites, focal inflammatory stranding, or adenopathy. Electronically Signed by Rodney Hart MD 11/28/2018 11:57 P
[2018-11-29] MEDS ORDERED: MORPHINE 4 MG/ML 1ML VIAL/SYRINGE (J2270) IV ONE (00:45)
[2018-11-29 01:20] LABS: BASO % 0.2 % (0.0-1.0); EOS % 0.2 % (0.0-3.0); HEMATOCRIT 44.5 % (42.0-52.0); HEMOGLOBIN 14.9 g/dl (13.5-17.5); LYMPH # 1.2 10^3/uL (1.5-4.5); LYMPH % 8.9 % (24.0-44.0); MEAN CORPUSCULAR HEMOGLOBIN 28.8 pg (27.0-33.0); MEAN CORPUSCULAR HGB CONC 33.5 g/dl (32.0-36.5); MEAN CORPUSCULAR VOLUME 85.9 fl (80.0-96.0); MONO # 1.6 10^3/uL (0.0-0.8); MONO % 11.6 % (0.0-5.0); NEUTROPHILS # 10.7 10^3/uL (1.8-7.7); NEUTROPHILS % 78.9 % (36.0-66.0); PLATELET COUNT, AUTOMATED 305 10^3/uL (150-450); RED BLOOD COUNT 5.18 10^6/uL (4.30-6.10); WHITE BLOOD COUNT 13.5 10^3/uL (4.0-10.0)
[2018-11-29 01:47] LABS: BLOOD UREA NITROGEN 20 MG/DL (7-18); CALCIUM LEVEL 9.9 MG/DL (8.8-10.2); CARBON DIOXIDE LEVEL 28 MEQ/L (21-32); CHLORIDE LEVEL 98 MEQ/L (98-107); CREATININE FOR GFR 1.13 MG/DL (0.70-1.30); GLOMERULAR FILTRATION RATE > 60.0 (>49); GLUCOSE, FASTING 182 MG/DL (70-100); POTASSIUM SERUM 3.7 MEQ/L (3.5-5.1); SODIUM LEVEL 134 MEQ/L (136-145)
[2018-11-29] MEDS ORDERED: VALI5TAB PO (01:57)
[2018-11-29] MEDS ORDERED: PERC5TAB12 PO (01:57)
[2018-11-29 02:29] VITALS: BP 169/79
== END 2018-11-29 02:27 | disposition home or self-care (01) ==
LOC: M ED 20:35
DX: N28.1 Cyst of kidney, acquired (principal); N20.0 Calculus of kidney; E11.9 Type 2 diabetes mellitus without complications; I10 Essential (primary) hypertension; Z79.4 Long term (current) use of insulin; Z79.899 Other long term (current) drug therapy; Z98.890 Other specified postprocedural states; Z87.442 Personal history of urinary calculi; Z88.1 Allergy status to other antibiotic agents; Z88.2 Allergy status to sulfonamides
CPT/HCPCS: 74176; 80048; 81001; 85025; 96372; 96374; 99284; J2270; Q0162

== ENCOUNTER → 2018-12-13 | Outpatient (REF) | payer OTHER ==
[~2018-12-13] MED LIST changes: +VALI5TAB PO
[2018-12-13 13:50] LABS: HEMOGLOBIN A1c 7.1 %
[2018-12-13 13:52] LABS: FREE T4 1.14 NG/DL (0.76-1.46); RHEUMATOID FACTOR QUANT < 10.0 IU/ML (<15.0); TOTAL PROTEIN 6.5 GM/DL (6.4-8.2)
[2018-12-13 13:54] LABS: VITAMIN B12 LEVEL 289 PG/ML
[2018-12-13 14:14] LABS: FOLATE 12.7 NG/ML
[2018-12-14 10:19] LABS: ALBUMIN 3.35 GM/DL (3.29-5.55); ALBUMIN % 51.5 % (55.8-66.1); ALPHA-1-GLOBULIN % 6.5 % (2.9-4.9); ALPHA-1-GLOBULINS 0.42 GM/DL (0.17-0.41); ALPHA-2-GLOBULINS 1.07 GM/DL (0.42-0.99); ALPHA-2-GLOBULINS % 16.4 % (7.1-11.8); BETA-1-GLOBULINS 0.38 GM/DL (0.28-0.60); BETA-1-GLOBULINS % 5.8 % (4.7-7.2); BETA-2-GLOBULINS % 6.1 % (3.2-6.5); GAMMA GLOBULIN % 13.7 % (11.1-18.8); GAMMA GLOBULINS 0.89 GM/DL (0.65-1.58)
[2018-12-19 10:41] LABS: DRVV SCREEN 190.3 SEC
[2018-12-19 10:48] LABS: PTT LUPUS TYPE ANTICOAG SCREEN 4.6 (0-1.2)
[2018-12-19 10:52] LABS: DRVV CONFIRM 88.4 SEC; LUPUS CONFIRM RATIO 2.4
[2018-12-19 10:59] LABS: NORMALIZED RATIO 1.92 (0.00-1.20)
[2018-12-19 14:17] LABS: ANTINUCLEAR ANTIBODIES DIRECT Negative (Negative); VITAMIN B1 LEVEL WHOLE BLOOD 111.8 nmol/L (66.5-200.0); VITAMIN B6,PYRIDOXAL PHOSPHATE 4.2 ug/L (5.3-46.7); VITAMIN E(ALPHA TOCOPHEROL) 9.7 mg/L (9.0-29.0); VITAMIN E(GAMMA TOCOPHEROL) 1.9 mg/L (0.5-4.9)
== END ==
LOC: M LABNEURO 08:37
PROVIDERS: ATTEND Psychiatry & Neurology Neurology
DX: M54.5 Low back pain (principal); G62.9 Polyneuropathy, unspecified

== ENCOUNTER → 2019-11-05 | Outpatient (REF) | payer OTHER ==
[~2019-11-05] MED LIST changes: +IRBE75TA4 PO; -IRBE75TA5 PO
[2019-11-05 11:14] LABS: RBC, URINE 15-20 /hpf (0-3); SQUAMOUS EPITHELIAL CELL URINE SMALL AMOUNT /hpf (SMALL AMT); WBC, URINE 0-1 /hpf (0-3)
[2019-11-05 11:15] LABS: BACTERIA, URINE SMALL AMOUNT; HYALINE CAST, URINE 0-1 /lpf (0-1); MUCUS, URINE LARGE AMOUNT (NEGATIVE)
[2019-11-06 13:10] LABS: APPEARANCE, URINE CLOUDY (CLEAR); BACTERIA, URINE AUTO NEGATIVE (NEGATIVE); BILIRUBIN, URINE AUTO NEGATIVE (NEGATIVE); BLOOD, URINE BLOOD NEGATIVE (NEGATIVE); COLOR, URINE YELLOW (YELLOW); GLUCOSE, URINE (UA) AUTO 1+ mg/dL (NEGATIVE); KETONE, URINE AUTO NEGATIVE (NEGATIVE); LEUKOCYTE ESTERASE, URINE AUTO NEGATIVE (NEGATIVE); NITRITE, URINE AUTO NEGATIVE (NEGATIVE); PROTEIN, URINE AUTO NEGATIVE (NEGATIVE); RBC, URINE AUTO 4 /HPF (0-3); SQUAMOUS EPITHELIAL CELL UR AU 0 /HPF (0-6); WBC, URINE AUTO 1 /HPF (0-3)
== END ==
LOC: M LAB REF 09:58
PROVIDERS: ATTEND Family Medicine
DX: R31.9 Hematuria, unspecified (principal)

== ENCOUNTER → 2020-01-28 | Outpatient (CLI) | payer OTHER | LOC: M LABSMTC 09:40 | PROVIDERS: ATTEND Orthopaedic Surgery | DX: Z03.818 Encounter for observation for suspected exposure to other biological agents ruled out (principal); Z11.59 Encounter for screening for other viral diseases ==

== ENCOUNTER → 2020-05-03 | Outpatient (REF) | payer OTHER ==
[~2020-05-03] MED LIST changes: -ASPI81TA85 PO; +ASPI81TA86 PO; -NADO80TA PO; +NADO80TA5 PO
[2020-05-03 13:00] LABS: APPEARANCE, URINE CLOUDY (CLEAR); BACTERIA, URINE AUTO NEGATIVE (NEGATIVE); BILIRUBIN, URINE AUTO NEGATIVE (NEGATIVE); BLOOD, URINE BLOOD 3+ (NEGATIVE); COLOR, URINE YELLOW (YELLOW); GLUCOSE, URINE (UA) AUTO NEGATIVE (NEGATIVE); KETONE, URINE AUTO NEGATIVE (NEGATIVE); LEUKOCYTE ESTERASE, URINE AUTO 1+ (NEGATIVE); NITRITE, URINE AUTO NEGATIVE (NEGATIVE); PROTEIN, URINE AUTO 1+ mg/dL (NEGATIVE); RBC, URINE AUTO TNTC /HPF (0-3); SPECIFIC GRAVITY URINE AUTO 1.018 (1.002-1.035); SQUAMOUS EPITHELIAL CELL UR AU 0 /HPF (0-6); UROBILINOGEN, URINE AUTO 0.2 mg/dL (0.0-2.0); WBC, URINE AUTO 31 /HPF (0-3)
== END ==
LOC: M LAB 12:33
PROVIDERS: ATTEND Physician Assistant Medical
DX: N39.0 Urinary tract infection, site not specified (principal)

== ENCOUNTER → 2020-05-30 | Outpatient (REF) | payer OTHER ==
[2020-05-30 13:02] LABS: APPEARANCE, URINE HAZY (CLEAR); BACTERIA, URINE AUTO NEGATIVE (NEGATIVE); BILIRUBIN, URINE AUTO NEGATIVE (NEGATIVE); BLOOD, URINE BLOOD 3+ (NEGATIVE); COLOR, URINE YELLOW (YELLOW); GLUCOSE, URINE (UA) AUTO NEGATIVE (NEGATIVE); KETONE, URINE AUTO NEGATIVE (NEGATIVE); LEUKOCYTE ESTERASE, URINE AUTO NEGATIVE (NEGATIVE); MUCUS, URINE SMALL (NEGATIVE); NITRITE, URINE AUTO NEGATIVE (NEGATIVE); PROTEIN, URINE AUTO NEGATIVE (NEGATIVE); RBC, URINE AUTO TNTC /HPF (0-3); SPECIFIC GRAVITY URINE AUTO 1.023 (1.002-1.035); SQUAMOUS EPITHELIAL CELL UR AU 0 /HPF (0-6); UROBILINOGEN, URINE AUTO 0.2 mg/dL (0.0-2.0); WBC, URINE AUTO 3 /HPF (0-3)
== END ==
LOC: M LAB REF 11:26
PROVIDERS: ATTEND Family Medicine
DX: R31.9 Hematuria, unspecified (principal)

== ENCOUNTER → 2020-09-23 | Outpatient (CLI) | payer OTHER ==
[2020-09-23 10:14] LABS: APPEARANCE, URINE HAZY (CLEAR); BACTERIA, URINE AUTO NEGATIVE (NEGATIVE); BILIRUBIN, URINE AUTO NEGATIVE (NEGATIVE); BLOOD, URINE BLOOD NEGATIVE (NEGATIVE); COLOR, URINE YELLOW (YELLOW); GLUCOSE, URINE (UA) AUTO NEGATIVE (NEGATIVE); KETONE, URINE AUTO NEGATIVE (NEGATIVE); LEUKOCYTE ESTERASE, URINE AUTO NEGATIVE (NEGATIVE); MUCUS, URINE SMALL (NEGATIVE); NITRITE, URINE AUTO NEGATIVE (NEGATIVE); PROTEIN, URINE AUTO NEGATIVE (NEGATIVE); RBC, URINE AUTO 11 /HPF (0-3); SPECIFIC GRAVITY URINE AUTO 1.019 (1.002-1.035); SQUAMOUS EPITHELIAL CELL UR AU 1 /HPF (0-6); UROBILINOGEN, URINE AUTO 0.2 mg/dL (0.0-2.0); WBC, URINE AUTO 1 /HPF (0-3)
== END ==
LOC: M LAB 08:55
PROVIDERS: ATTEND Urology
DX: R31.9 Hematuria, unspecified (principal)

== ENCOUNTER → 2020-12-16 | Outpatient (CLI) | payer OTHER ==
[2020-12-16 10:56] LABS: HEMATOCRIT 48.4 % (42.0-52.0); HEMOGLOBIN 16.2 g/dl (13.5-17.5); MEAN CORPUSCULAR HEMOGLOBIN 29.8 pg (27.0-33.0); MEAN CORPUSCULAR HGB CONC 33.5 g/dl (32.0-36.5); MEAN CORPUSCULAR VOLUME 89.1 fl (80.0-96.0); PLATELET COUNT, AUTOMATED 199 10^3/uL (150-450); RED BLOOD COUNT 5.43 10^6/uL (4.30-6.10); WHITE BLOOD COUNT 6.8 10^3/uL (4.0-10.0)
[2020-12-16 11:25] LABS: BLOOD UREA NITROGEN 18 MG/DL (7-18); CALCIUM LEVEL 9.7 MG/DL (8.8-10.2); CARBON DIOXIDE LEVEL 31 MEQ/L (21-32); CHLORIDE LEVEL 102 MEQ/L (98-107); CREATININE FOR GFR 0.82 MG/DL (0.70-1.30); GLOMERULAR FILTRATION RATE > 60.0 (>49); GLUCOSE, FASTING 123 MG/DL (70-100); POTASSIUM SERUM 4.3 MEQ/L (3.5-5.1); SODIUM LEVEL 137 MEQ/L (136-145)
== END ==
LOC: M LAB 09:39
PROVIDERS: ATTEND Urology
DX: N20.0 Calculus of kidney (principal)

== ENCOUNTER → 2020-12-27 | Outpatient (CLI) | payer OTHER ==
--- NOTE | 2020-12-27 09:27 | REP ---
INDICATION: KIDNEY STONES COMPARISON: 02/15/2020, 02/01/2015 TECHNIQUE: Axial noncontrast images from the lung bases to the pubic symphysis with coronal and sagittal reformations. This CT examination was performed using the following dose reduction techniques: Automated exposure control, adjustment of mA and/or kv according to the patient's size, and use of iterative reconstruction technique. FINDINGS: Evaluation of the urinary tract system demonstrates a stable 3.2 cm right hypodensity compatible with cyst and unchanged from comparison studies along with 12 mm nonobstructing left lower pole intrarenal calculus. No acute perinephric stranding or hydronephrosis. The bilateral ureters and bladder appear essentially normal. Lung bases are clear. Visualized heart and pericardium normal. Liver, spleen, pancreas, and bilateral adrenal glands are normal. Cholelithiasis noted without acute cholecystitis. The enteric system is unremarkable and without obstruction or acute inflammatory process. Normal terminal ileum and appendix identified in the right lower quadrant. Pelvis demonstrates normal collapsed bladder and mildly prominent prostate gland with few coarse parenchymal calcifications. No ascites. No free air. No adenopathy. No focal inflammatory stranding. Atherosclerotic changes to the aorta and vasculature noted without aneurysm. Musculoskeletal structures are intact and without acute osseous abnormality. IMPRESSION: 1. 12 mm nonobstructing left renal calculus and 3.2 cm right renal cyst again noted. No acute urinary tract pathology appreciated. 2. Cholelithiasis. 3. Mildly prominent prostate gland. <Electronically signed by Rodney Hart > 12/27/20 [id number]
== END ==
LOC: M RAD 08:08
PROVIDERS: ATTEND Urology
DX: N20.0 Calculus of kidney (principal); N28.1 Cyst of kidney, acquired; K80.20 Calculus of gallbladder without cholecystitis without obstruction; N40.2 Nodular prostate without lower urinary tract symptoms

== ENCOUNTER 2021-01-08 11:36 | Emergency (ER) | payer OTHER ==
[~2021-01-08] VITALS: Ht 167.6 cm; Wt 125.5 kg
[~2021-01-08 11:36] MED LIST changes: -ACET1TAB55 PO; -AMIL5TAB4 PO; -CIPR500T39 PO; -HYDR50TAB PO; -IBUP200C25 PO; -LOSA25TA14 PO; -REST0.05 OP; -TAMS1CAP17 PO
[2021-01-08] MEDS ORDERED: LOSA25TA14 PO (12:19)
[2021-01-08] MEDS ORDERED: IBUP200C25 PO (12:19)
[2021-01-08] MEDS ORDERED: TAMS1CAP17 PO (12:19)
[2021-01-08] MEDS ORDERED: CIPR500T39 PO (12:19)
[2021-01-08] MEDS ORDERED: PRESCAP PO (12:19)
[2021-01-08] MEDS ORDERED: AMIL5TAB4 PO (12:19)
[2021-01-08] MEDS ORDERED: ACET1TAB55 PO (12:19)
[2021-01-08] MEDS ORDERED: HYDR50TAB PO (12:19)
[2021-01-08] MEDS ORDERED: REST0.05 OP (12:19)
[2021-01-08] MEDS ORDERED: ISOVUE-370 76% 100ML VIAL As Ordered ONE (14:36)
[2021-01-08 14:59] LABS: ALBUMIN 3.3 GM/DL (3.2-5.2); ALT/SGPT 30 U/L (12-78); BILIRUBIN,DIRECT 0.3 MG/DL (0.0-0.2); BILIRUBIN,TOTAL 1.8 MG/DL (0.2-1.0); CK-MB VALUE MASS < 1.0 NG/ML (<3.6); CPK CREATINE PHOSPHOKINASE 121 U/L (39-308); MB/CK RELATIVE INDEX 0.83 (< OR =4); NT-PRO BNP 2719 PG/ML (<125); THYROID STIMULATING HORMONE 0.585 uIU/ML (0.358-3.740); THYROXINE (T4) 11.7 UG/DL (4.5-12.0); TOTAL PROTEIN 6.4 GM/DL (6.4-8.2); TROPONIN I < 0.02 NG/ML (< 0.10)
[2021-01-08 15:57] LABS: BASO # 0.1 10^3/uL (0.0-0.2); BASO % 0.6 % (0.0-1.0); EOS # 0.2 10^3/uL (0.0-0.5); HEMATOCRIT 42.7 % (42.0-52.0); HEMOGLOBIN 14.1 g/dl (13.5-17.5); LYMPH # 1.2 10^3/uL (1.5-5.0); LYMPH % 15.1 % (24.0-44.0); MEAN CORPUSCULAR HEMOGLOBIN 29.5 pg (27.0-33.0); MEAN CORPUSCULAR VOLUME 89.3 fl (80.0-96.0); MONO # 0.7 10^3/uL (0.0-0.8); MONO % 8.8 % (2.0-8.0); NEUTROPHILS % 73.1 % (36.0-66.0); PLATELET COUNT, AUTOMATED 237 10^3/uL (150-450); RED BLOOD COUNT 4.78 10^6/uL (4.30-6.10); WHITE BLOOD COUNT 8.2 10^3/uL (4.0-10.0)
--- NOTE | 2021-01-08 15:59 | REP ---
INDICATION: SOB; r/o PE COMPARISON: None. TECHNIQUE: Axial contrast enhanced images from the thoracic inlet to the upper abdomen using pulmonary embolus technique with multiplanar re-formations. 75 ml Isovue 370 intravenous contrast material administered without complication. This CT examination was performed using the following dose reduction techniques: Automated exposure control, adjustment of mA and/or kv according to the patient's size, and use of iterative reconstruction technique. FINDINGS: Satisfactory enhancement of the pulmonary vasculature is achieved and no filling defects are identified to suggest pulmonary embolus. Further evaluation of the mediastinum demonstrates cardiomegaly and atherosclerotic changes to the coronary arteries. Thoracic aorta is without aneurysm or dissection. Moderate mediastinal and hilar adenopathy is appreciated. The lung joy demonstrate mildly increased interstitial markings raising the possibility of subtle bronchitis/viral pneumonia. No focal consolidation. No effusion. No pneumothorax. Surrounding musculoskeletal structures are intact. Limited upper abdomen demonstrates normal bilateral adrenal glands. IMPRESSION: No evidence for pulmonary embolus. Mild/moderate adenopathy. Cannot exclude very subtle bronchitis/viral pneumonia. No focal consolidation or effusion. <Electronically signed by Rodney Hart > 01/08/21 [id number]
[2021-01-08 16:36] VITALS: BP 119/68
--- NOTE | 2021-01-09 04:55 | ECGEPIP ---
[facility] - ED Test Date: 2021-01-08 Pat Name: BRITNI HANDLEY Department: Room: - Gender: Male Environmental Services Assistant: CALOS : 1955 Requested By: LYLE MARTIN Order Number: [id number] Reading MD: Otilio Oscar Measurements Intervals [place] Rate: 57 P: ND: QRS: 88 QRSD: 142 T: -15 QT: 480 QTc: 467 Interpretive Statements Atrial fibrillation with slow ventricular response RIGHT AXIS DEVIATION Right bundle branch block RATE CHANGE COMPARED TO 10/05/18 Electronically Signed on 01-09-2021 4:55:33 EDT by Otilio Oscar
--- NOTE | 2021-01-09 07:20 | ED PDOC ---
Post-Departure Follow-Up radiology repor tfaxed to william Santillan Sarah MD January 09, 2021 07:20
== END 2021-01-08 17:00 | disposition home or self-care (01) ==
LOC: M ED 11:36
DX: J20.9 Acute bronchitis, unspecified (principal); R59.0 Localized enlarged lymph nodes; I48.91 Unspecified atrial fibrillation; I10 Essential (primary) hypertension; Z88.2 Allergy status to sulfonamides; Z79.899 Other long term (current) drug therapy
CPT/HCPCS: 36415; 71275; 80047; 80076; 82550; 82553; 83605; 83880; 84436; 84443; 84484; 85025; 87040; 93005; 93041; 94760; 99285; Q9967

== ENCOUNTER → 2021-01-08 | Outpatient (CLI) | payer OTHER ==
[~2021-01-08] MED LIST changes: +ACET1TAB55 PO; +AMIL5TAB4 PO; +CIPR500T39 PO; +HYDR50TAB PO; +IBUP200C25 PO; +LOSA25TA14 PO; +REST0.05 OP; +TAMS1CAP17 PO
--- NOTE | 2021-01-08 14:11 | REP ---
INDICATION: COUGH COMPARISON: 10/05/2019 TECHNIQUE: PA and lateral. FINDINGS: The mediastinum and cardiac silhouette are normal. The lung joy are clear and without acute consolidation, effusion, or pneumothorax. The skeletal structures are intact and normal. IMPRESSION: No acute cardiopulmonary process. <Electronically signed by Rodney Hart > 01/08/21 [id number]
== END ==
LOC: M RAD 10:05
PROVIDERS: ATTEND Urology
DX: R05 Cough (principal)

== ENCOUNTER → 2021-01-14 | Outpatient (REF) | payer OTHER ==
[~2021-01-14] MED LIST changes: +ACET1TAB55 PO; +AMIL5TAB4 PO; +CIPR500T39 PO; +HYDR50TAB PO; +IBUP200C25 PO; +LOSA25TA14 PO; +REST0.05 OP; +TAMS1CAP17 PO
[2021-01-14 09:22] LABS: APPEARANCE, URINE MANUAL CLOUDY (CLEAR); BILIRUBIN, URINE MANUAL NEGATIVE (NEGATIVE); BLOOD URINE MANUAL POSITIVE (NEGATIVE); COLOR, URINE MANUAL RED (YELLOW); GLUCOSE, URINE (UA) MANUAL NEGATIVE (NEGATIVE); KETONE, URINE MANUAL NEGATIVE (NEGATIVE); LEUKOCYTE ESTERASE, URINE MAN POSITIVE (NEGATIVE); NITRITE, URINE MANUAL NEGATIVE (NEGATIVE); UROBILINOGEN, URINE MANUAL NORMAL (NORMAL)
[2021-01-14 09:24] LABS: AMORPHOUS SEDIMENT, URINE SMALL AMOUNT (NEGATIVE); BACTERIA, URINE SMALL AMOUNT; HYALINE CAST, URINE NONE SEEN /lpf (0-1); RBC, URINE TNTC /hpf (0-3); SQUAMOUS EPITHELIAL CELL URINE 0 /hpf (SMALL AMT)
== END ==
LOC: M LAB REF 08:42
PROVIDERS: ATTEND Urology
DX: N20.0 Calculus of kidney (principal)

== ENCOUNTER → 2021-01-19 | Outpatient (REF) | payer OTHER | LOC: M LAB REF 16:23 | PROVIDERS: ATTEND Family Medicine | DX: I51.89 Other ill-defined heart diseases (principal) ==

== ENCOUNTER 2021-02-12 23:08 | Inpatient (IN) | payer OTHER ==
[~2021-02-12] VITALS: Ht 167.6 cm; Wt 122.5 kg
[2021-02-13 00:40] LABS: ALBUMIN 3.3 GM/DL (3.2-5.2); ALT/SGPT 29 U/L (12-78); BILIRUBIN,DIRECT 0.3 MG/DL (0.0-0.2); BILIRUBIN,TOTAL 1.4 MG/DL (0.2-1.0); BLOOD UREA NITROGEN 21 MG/DL (7-18); CALCIUM LEVEL 9.2 MG/DL (8.8-10.2); CARBON DIOXIDE LEVEL 27 MEQ/L (21-32); CHLORIDE LEVEL 108 MEQ/L (98-107); CK-MB VALUE MASS 1.1 NG/ML (<3.6); CPK CREATINE PHOSPHOKINASE 55 U/L (39-308); CREATININE FOR GFR 1.02 MG/DL (0.70-1.30); FREE T4 1.17 NG/DL (0.76-1.46); GLOMERULAR FILTRATION RATE > 60.0 (>49); GLUCOSE, FASTING 147 MG/DL (70-100); LIPASE 75 U/L (73-393); NT-PRO BNP 3347 PG/ML (<125); POTASSIUM SERUM 3.7 MEQ/L (3.5-5.1); SODIUM LEVEL 142 MEQ/L (136-145); TOTAL PROTEIN 6.1 GM/DL (6.4-8.2); TROPONIN I < 0.02 NG/ML (< 0.10)
[2021-02-13 00:46] LABS: BASO % 0.5 % (0.0-1.0); EOS # 0.1 10^3/uL (0.0-0.5); EOS % 1.5 % (0.0-3.0); HEMOGLOBIN 12.5 g/dl (13.5-17.5); LYMPH # 1.3 10^3/uL (1.5-5.0); LYMPH % 17.6 % (24.0-44.0); MEAN CORPUSCULAR HEMOGLOBIN 28.8 pg (27.0-33.0); MEAN CORPUSCULAR HGB CONC 32.1 g/dl (32.0-36.5); MEAN CORPUSCULAR VOLUME 89.9 fl (80.0-96.0); MONO # 0.7 10^3/uL (0.0-0.8); MONO % 9.5 % (2.0-8.0); NEUTROPHILS # 5.3 10^3/uL (1.5-8.5); NEUTROPHILS % 70.6 % (36.0-66.0); PLATELET COUNT, AUTOMATED 196 10^3/uL (150-450); RED BLOOD COUNT 4.34 10^6/uL (4.30-6.10); WHITE BLOOD COUNT 7.5 10^3/uL (4.0-10.0)
--- NOTE | 2021-02-13 01:28 | REPVR ---
PROCEDURE INFORMATION: Exam: US Duplex Lower Extremity Veins, Bilateral Exam date and time: 02/12/2021 12:17 AM Age: 65 years old Clinical indication: Edema, localized; Lower extremity, bilateral; Additional info: Edema R/O dvt TECHNIQUE: Imaging protocol: Real-time duplex ultrasound of the extremities with 2-D weldon scale, color Doppler flow and spectral waveform analysis with image documentation. Complete exam focused on the bilateral lower extremity veins. COMPARISON: CT Knee, Ap, Lat RIGHT 10/17/2018 2:32 PM FINDINGS: Right deep veins: Unremarkable. The common femoral, femoral, popliteal, posterior tibial and peroneal veins are patent without thrombus. Normal Doppler waveforms. Normal compressibility and/or augmentation response. Right superficial veins: Saphenofemoral junction is patent without thrombus. Left deep veins: Unremarkable. The common femoral, femoral, popliteal, posterior tibial and peroneal veins are patent without thrombus. Normal Doppler waveforms. Normal compressibility and/or augmentation response. Left superficial veins: Saphenofemoral junction is patent without thrombus. Soft tissues: Unremarkable. IMPRESSION: No sonographic evidence of deep vein thrombosis. Electronically signed by: Anupam Almazan On 02/13/2021 01:28:16 AM
--- NOTE | 2021-02-13 01:39 | REPVR ---
PROCEDURE INFORMATION: Exam: XR Chest Exam date and time: 02/13/2021 12:38 AM Age: 65 years old Clinical indication: Other: SOB TECHNIQUE: Imaging protocol: XR of the chest. Views: 2 views. COMPARISON: CR Chest, 2 view PA, Lat 01/08/2021 10:14 AM FINDINGS: Lungs: Questionable left basilar atelectasis versus infiltrate, similar to prior. Pleural spaces: Unremarkable. No definite pleural effusion. No pneumothorax. Heart/Mediastinum: Unremarkable. No cardiomegaly. Bones/joints: No acute osseous abnormality. Mild degenerative changes of the spine and shoulders. IMPRESSION: Questionable left basilar atelectasis versus infiltrate, similar to prior. Electronically signed by: Anupam Almazan On 02/13/2021 01:38:43 AM
--- NOTE | 2021-02-13 02:51 | REPVR ---
PROCEDURE INFORMATION: Exam: CTA Chest With Contrast Exam date and time: 02/13/2021 1:53 AM Age: 65 years old Clinical indication: Shortness of breath; Additional info: SOB, elevated bnp TECHNIQUE: Imaging protocol: Computed tomographic angiography of the chest with contrast. Axial, coronal and sagittal reformatted images were created and reviewed. 3D rendering (Not supervised by radiologist): MIP and/or 3D reconstructed images were created by the technologist. Radiation optimization: All CT scans at this facility use at least one of these dose optimization techniques: automated exposure control; mA and/or kV adjustment per patient size (includes targeted exams where dose is matched to clinical indication); or iterative reconstruction. Contrast material: ISO; Contrast volume: 100 ml; Contrast route: INTRAVENOUS (IV); COMPARISON: CT ANGIO CHEST 01/08/2021 3:11 PM FINDINGS: Pulmonary arteries: Contrast opacification satisfactory. No intraluminal filling defect. Aorta: Mild atherosclerotic disease. No aneurysm or dissection. Veins: Reflux of contrast into the IVC and intrahepatic veins, suggesting right-sided heart failure. Lungs: Patchy areas of ground-glass infiltration with associated septal and peribronchial thickening, suggestive of edema. No consolidation. Pleural spaces: Small pleural effusions. No pneumothorax. Heart: Mild cardiomegaly. No pericardial effusion. Lymph nodes: Mildly prominent mediastinal and bilateral hilar lymph nodes, likely reactive. Gallbladder and bile ducts: Cholelithiasis. Bones/joints: No acute osseous abnormality. Mild degenerative changes. Soft tissues: Unremarkable. IMPRESSION: 1. No CT evidence of pulmonary embolism. 2. Cardiomegaly with evidence of right-sided heart failure, small pleural effusions and mild edema. 3. Additional findings, as above. Electronically signed by: Anupam Almazan On 02/13/2021 02:50:45 AM
[2021-02-13] MEDS ORDERED: FUROSEMIDE 40MG/4ML VIAL (J1940) IV ONE (03:05)
--- NOTE | 2021-02-13 03:12 | HPEPDOC ---
[facility] Medical History & Physical Date of Admission Feb 13, 2021 Date of Service: Feb 13, 2021 Primary Care Physician: PATRIC LUNA M.D. 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 Despite the change in his medications over the last 5 d ays he has been feeling more short of breath, especially with exertion. He has difficulties sleeping at night because of the dyspnea and has use 2 pillows to prop his head up. He has been experiencing chest heaviness, a cough and lower leg swelling (the right LE is chronically more swollen than the left he has had US in the past that were neg for DVT). 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 HOME MEDICATIONS: Please see below. PHYSICAL EXAMINATION: Vital Signs Date Time Temp Pulse Resp B/P (MAP) Pulse Ox O2 Delivery O2 Flow Rate FiO2 02/12/21 23:09 97.5 46 24 120/60 (80) 95 Room Air GENERAL APPEARANCE: well-nourished and developed / NAD HEENT: EOMI / lower face covered w mask / unable to assess for JVP bc of excess subcutaneous tissue CARDIOVASCULAR: bradycardic/HR irregularly irregular / + 2 BLE edema up to the knees L>>R LUNGS: CTAB on RA ABDOMEN: contour flat / soft & NT w palpation MUSCULOSKELETAL: NCAT / ROMIx 4 INTEGUMENT: not flushed / no rashes / not cyanotic NEUROLOGICAL: CN 2-12 intact / speech not dysarthric PSYCHIATRIC: A&O x3 / able to understand and follow all commands LABORATORY DATA: IMAGING: US IMPRESSION: No sonographic evidence of deep vein thrombosis Chest xray IMPRESSION: Questionable left basilar atelectasis versus infiltrate, similar to prior. CTA chest IMPRESSION: 1. No CT evidence of pulmonary embolism. 2. Cardiomegaly with evidence of right-sided heart failure, small pleural effusions and mild edema. 3. Additional findings, as above. MICROBIOLOGY: respiratory panel neg ASSESSMENT: is a 65 yr old w IDDM, HTN, DLP, A fib, ANAY, & obesity who is admitted for acute CHF (EF unknown). PLAN: 1 Acute CHF (EF ?) Plan: admit to medical floor / elevate head of bed to 45 degrees/ strict Is/OS, daily weights, fluid restriction to 2L or 67oz, salt restriction to 2G / f/u TSH, Troponin, Echo / IV Lasix (his BMI can support a a net fluid balance of -3 L daily) f/u K and renal function daily 2 Asymptomatic Beta shama induced Bradycardia / A fib w slow ventricular response Plan: telemetry / c/w rivaroxaban 3 NN Anemia Plan: f/u iron studies and stool occult / will need out pt GI eval for c-scope if not recently done 4 IDDM Plan: diabetic diet / f/u accuchecks / hypoglycemia protocol / sliding scale insulin / hold oral anti-glycemic / f/u A1C (target A1C is <7 to 6.5% ) his home regimen includes Actos, Levemir 50 units BID & Trulicity, we will start Levemir 30 units BID for now / his PCP may consider out pt Endo referral to switch from basal bolus injection to continuous subcutaneous insulin infusion which has been shown to produced small improvements in A1C, improve QOL and reduce episodes of severe hypoglycemia 5 Essential HTN Plan: Losartan and Nadolol 6 DLP Plan: Atorvastatin 7 Class 1 Obesity Complicates care Because his BMI >35 with co-existing DM he is a candidate for bariatric surgery Plan: he can f/u w his or her PCP to discuss staring Saxenda, which is indicated in patients with a BMI >27 with co-existing DM, HTN or dyslipidemia to help with weight control as an adjunct to exercise & referral to a Bariatric Surgeon DVT px n/a he is on a DOAC Dispo: home after at least 2 midnights stay Home Medications Scheduled Amiloride HCl (Amiloride HCl) 5 Mg Tablet, 5 MG PO DAILY Aspirin (Aspirin EC) 81 Mg Tablet.dr, 81 MG PO DAILY Atorvastatin Calcium (Atorvastatin Calcium) 40 Mg Tab, 40 MG PO QHS Cholecalciferol (Vitamin D3) (Vitamin D3) 50 Mcg Capsule, 50 MCG PO DAILY Dulaglutide (Trulicity) 0.75 Mg/0.5 Ml Pen.injctr, 0.75 MG SC QWEEK MONDAYS Insulin Detemir (Levemir Flextouch) 100 Unit/Ml Inj, 50 UNITS SC BID Losartan Potassium (Losartan Potassium) 25 Mg Tablet, 25 MG PO QHS Lutein (Lutein) 20 Mg Cap, 20 MG PO DAILY Nadolol (Nadolol) 80 Mg Tab, 120 MG PO QHS [place]-3 Fatty Acids/Fish Oil (Fish Oil 1,000 mg Capsule) 1 Each Capsule, 1,000 MG PO DAILY Pioglitazone HCl (Actos) 30 Mg Tab, 30 MG PO QHS Potassium Bicarbonate/Cit AC (Effer-K 20 Meq Tablet Eff) 20 Meq Tablet.eff, 1 TAB PO BID Rivaroxaban (Xarelto) 20 Mg Tab, 20 MG PO QHS Sodium Bicarbonate (Sodium Bicarbonate) 650 Mg Tab, 650 MG PO TID Vit A/Vit C/Vit E/Zinc/Copper (Preservision Areds Softgel) 1 Each Capsule, 1 CAP PO DAILY Scheduled PRN Cyclosporine (Restasis) 0.05% Droperette, 1 DROP OU BID PRN for DRY EYES Allergies Coded Allergies: Sulfa (Sulfonamide Antibiotics) (Verified Allergy, Unknown, 11/28/18) metformin (Verified Allergy, Unknown, 02/12/21) ramipril (Verified Allergy, Unknown, 02/12/21) A-FIB/CHADSVASC A-FIB History Current/History of A-Fib/PAF?: Yes Current PO Anticoag Therapy: Yes KYRA PFEIFFER MD Feb 13, 2021 03:12
[2021-02-13] MEDS ORDERED: ACETAMINOPHEN TAB 650MG DOSE (2X325MG) PO PRN (03:15)
[2021-02-13] MEDS ORDERED: MOM 30ML SUSPENSION UDC PO PRN (03:15)
[2021-02-13] MEDS ORDERED: MAALOX 30 ML SUSP *UDC PO PRN (03:15)
[2021-02-13] MEDS ORDERED: GLUCOSE 4GM CHEW TABLET PO PRN (03:15)
[2021-02-13] MEDS ORDERED: GLUCAGON INJ 1MG VIAL SC PRN (03:15)
[2021-02-13] MEDS ORDERED: DEXTROSE 50% 50 ML SYRINGE IV PRN (03:15)
[2021-02-13] MEDS ORDERED: D32000CA PO (03:31)
[2021-02-13] MEDS ORDERED: FISH1000 PO (03:31)
[2021-02-13] MEDS ORDERED: TRUL10IN SC (03:31)
[2021-02-13] MEDS ORDERED: LOSA25TA14 PO (03:31)
[2021-02-13] MEDS ORDERED: AMIL5TAB4 PO (03:31)
[2021-02-13] MEDS ORDERED: REST0.05 OU (03:31)
[2021-02-13] MEDS ORDERED: ASPI-161 PO (03:31)
[2021-02-13] MEDS ORDERED: EFFE20TA PO (03:31)
--- NOTE | 2021-02-13 05:38 | ECGEPIP ---
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
[2021-02-13] MEDS: HumaLOG INSULIN (NovoLOG) PER UNIT SC SCH ×3 (07:30→17:30)
[2021-02-13] MEDS ORDERED: FUROSEMIDE 40MG/4ML VIAL (J1940) IV SCH (08:00)
[2021-02-13 08:07] LABS: HEMATOCRIT 39.6 % (42.0-52.0); HEMOGLOBIN 12.6 g/dl (13.5-17.5); MEAN CORPUSCULAR HEMOGLOBIN 28.8 pg (27.0-33.0); MEAN CORPUSCULAR HGB CONC 31.8 g/dl (32.0-36.5); MEAN CORPUSCULAR VOLUME 90.4 fl (80.0-96.0); PLATELET COUNT, AUTOMATED 177 10^3/uL (150-450); RED BLOOD COUNT 4.38 10^6/uL (4.30-6.10); WHITE BLOOD COUNT 6.8 10^3/uL (4.0-10.0)
[2021-02-13 08:33] LABS: BLOOD UREA NITROGEN 16 MG/DL (7-18); CALCIUM LEVEL 8.8 MG/DL (8.8-10.2); CARBON DIOXIDE LEVEL 30 MEQ/L (21-32); CHLORIDE LEVEL 109 MEQ/L (98-107); CREATININE FOR GFR 0.94 MG/DL (0.70-1.30); GLOMERULAR FILTRATION RATE > 60.0 (>49); GLUCOSE, FASTING 76 MG/DL (70-100); POTASSIUM SERUM 3.5 MEQ/L (3.5-5.1); SODIUM LEVEL 144 MEQ/L (136-145); TROPONIN I < 0.02 NG/ML (< 0.10)
[2021-02-13] MEDS: LEVEMIR (INSULIN DETEMIR) 1 UNITS/0.01ML SC SCH ×2 (09:00→21:22)
[2021-02-13] MEDS ORDERED: POTASSIUM CHLORIDE 10 MEQ SR TABLET PO ONE ×2 (10:25→19:00)
[2021-02-13] MEDS: ASPIRIN 81MG ENTERIC TABLET PO SCH (11:33)
[2021-02-13 13:17] LABS: BLOOD UREA NITROGEN 15 MG/DL (7-18); CALCIUM LEVEL 9.6 MG/DL (8.8-10.2); CARBON DIOXIDE LEVEL 30 MEQ/L (21-32); CHLORIDE LEVEL 107 MEQ/L (98-107); CREATININE FOR GFR 0.98 MG/DL (0.70-1.30); GLOMERULAR FILTRATION RATE > 60.0 (>49); GLUCOSE, FASTING 141 MG/DL (70-100); POTASSIUM SERUM 3.4 MEQ/L (3.5-5.1); SODIUM LEVEL 143 MEQ/L (136-145); TROPONIN I < 0.02 NG/ML (< 0.10)
[2021-02-13] MEDS ORDERED: FUROSEMIDE 20MG/2ML VIAL (J1940) IV SCH (16:00)
[2021-02-13] MEDS: FUROSEMIDE 40MG/4ML VIAL (J1940) IV SCH ×2 (17:25→21:24)
--- NOTE | 2021-02-13 18:52 | IPNPDOC ---
Subjective Date Seen The patient was seen on 02/13/21. Subjective Chief Complaint/HPI Mr. Rodriguez is a 65 year old male with atrial fibrillation, IDDM, and HTN who presents with dyspnea and found to have CHF and bradycardia. This morning, his dyspnea improved. Denies chest pain. He was still in bradycardia. I reached out to cardiology, Dr. Wilks. Patient is on a large dose of nadolol which may have cause his bradycardia. Recommends waiting for the beta shama to wash out of the system. Objective Physical Examination General Exam: Positive: Alert, Cooperative Eye Exam: Negative: Sclera icteric Neck Exam: Positive: Supple Chest Exam: Positive: Clear to auscultation Heart Exam: Positive: Bradycardic, Regular Rhythm Abdomen Exam: Positive: Normal bowel sounds, Soft; Negative: Tenderness Extremity Exam: Positive: Edema (bilateral pitting edema) Neuro Exam: Positive: Normal Speech Psych Exam: Positive: Mental status NL, Mood NL Assessment /Plan Assessment Mr. Rodriguez is a 65 year old male with atrial fibrillation, IDDM, and HTN who presents with dyspnea and found to have CHF and bradycardia. Patient will be aggressively diuresed. Will hold patient's antihypertensives to allow for more diuresis. Otherwise, will monitor bradycardia on telemetry. Will wait for beta shama to wash out. Plan/VTE VTE Prophylaxis Ordered?: Yes Plan 1. CHF -Echocardiogram ordered -Requested outside records -Hold nadolol and losartan. When heart rate improves, should restart nadolol at lower dose -Continue with aggressive diuresis -Will need to monitor electrolytes during diuresis -Of note, will need to discontinue pioglitazone on discharge 2. Bradycardia -Most likely secondary to nadolol -Will need to wait for nadolol to wash out -Continue to monitor on telemetry 3. Hypertension -Holding amiloride, losartan, and nadolol to allow for more diuresis 4. Atrial fibrillation -Due to bradycardia, holding nadolol -Continue rivaroxaban 5. Obesity -Complicates care 6. DVT ppx -On rivaroxaban Disposition: Pending echocardiogram. Pending improvement in bradycardia VS, I&O, 24H, Fishbone Vital Signs/I&O Vital Signs Date Time Temp Pulse Resp B/P (MAP) Pulse Ox O2 Delivery O2 Flow Rate FiO2 02/13/21 15:31 97.2 43 18 159/72 (101) 95 Nasal Cannula 2.0 Laboratory Data 24H LABS Laboratory Tests 2 02/12/21 23:52: Immature Granulocyte % (Auto) 0.3, Neutrophils (%) (Auto) 70.6H, Lymphocytes (%) (Auto) 17.6L, Monocytes (%) (Auto) 9.5H, Eosinophils (%) (Auto) 1.5, Basophils (%) (Auto) 0.5, Neutrophils # (Auto) 5.3, Lymphocytes # (Auto) 1.3L, Monocytes # (Auto) 0.7, Eosinophils # (Auto) 0.1, Basophils # (Auto) 0.0, Nucleated Red Blood Cells % (auto) 0.0, Anion Gap 7L, Glomerular Filtration Rate > 60.0, Calcium Level 9.2, Total Bilirubin 1.4H, Direct Bilirubin 0.3H, Aspartate Amino Transf (AST/SGOT) 27, Alanine Aminotransferase (ALT/SGPT) 29, Alkaline Phosphatase 107, Total Creatine Kinase 55, Creatine Kinase MB 1.1, Creatine Kinase MB Relative Index 2.00, Troponin I < 0.02, BG-Lon-N-Type Natriuretic Peptide 3347H, Total Protein 6.1L, Albumin 3.3, Albumin/Globulin Ratio 1.2, Lipase 75, Thyroid Stimulating Hormone (TSH) 1.900, Free Thyroxine 1.17 02/13/21 07:28: Nucleated Red Blood Cells % (auto) 0.0, Anion Gap 5L, Glomerular Filtration Rate > 60.0, Calcium Level 8.8, Troponin I < 0.02 02/13/21 08:45: Bedside Glucose (Misc Panel) 80 02/13/21 12:10: Anion Gap 6L, Glomerular Filtration Rate > 60.0, Calcium Level 9.6, Troponin I < 0.02, Magnesium Level 2.0 02/13/21 13:42: Bedside Glucose (Misc Panel) 107 02/13/21 17:20: Bedside Glucose (Misc Panel) 105 CBC/BMP Laboratory Tests 02/12/21 23:52 02/13/21 07:28 02/13/21 12:10 Microbiology Microbiology 02/13/21 Respiratory Virus Panel (PCR) ([facility]) - Final, Complete SERENA ORTEGA DO Feb 13, 2021 18:52
[2021-02-13 20:35] VITALS: BP 116/52
[2021-02-13] MEDS ORDERED: RIVAROXABAN 20 MG TAB (XARELTO) PO SCH (21:00)
[2021-02-13] MEDS ORDERED: LOSARTAN 25 MG TAB PO SCH (21:00)
[2021-02-13] MEDS ORDERED: HumaLOG INSULIN (NovoLOG) PER UNIT SC SCH (21:00)
[2021-02-13] MEDS ORDERED: NADOLOL 20MG TABLET PO SCH (21:00)
[2021-02-13] MEDS ORDERED: ATORVASTATIN 20 MG TAB PO SCH (21:00)
[2021-02-13 21:52] LABS: BLOOD UREA NITROGEN 15 MG/DL (7-18); CALCIUM LEVEL 9.3 MG/DL (8.8-10.2); CARBON DIOXIDE LEVEL 29 MEQ/L (21-32); CHLORIDE LEVEL 106 MEQ/L (98-107); CREATININE FOR GFR 1.03 MG/DL (0.70-1.30); GLOMERULAR FILTRATION RATE > 60.0 (>49); GLUCOSE, FASTING 114 MG/DL (70-100); SODIUM LEVEL 140 MEQ/L (136-145)
[2021-02-14 01:00] VITALS: BP 120/54
[2021-02-14] MEDS: FUROSEMIDE 40MG/4ML VIAL (J1940) IV SCH ×3 (01:08→09:28)
[2021-02-14 04:57] VITALS: BP 108/59
[2021-02-14 06:48] LABS: HEMATOCRIT 39.5 % (42.0-52.0); HEMOGLOBIN 12.6 g/dl (13.5-17.5); MEAN CORPUSCULAR HEMOGLOBIN 28.4 pg (27.0-33.0); MEAN CORPUSCULAR HGB CONC 31.9 g/dl (32.0-36.5); MEAN CORPUSCULAR VOLUME 89.2 fl (80.0-96.0); PLATELET COUNT, AUTOMATED 185 10^3/uL (150-450); RED BLOOD COUNT 4.43 10^6/uL (4.30-6.10); WHITE BLOOD COUNT 6.9 10^3/uL (4.0-10.0)
[2021-02-14 07:08] LABS: BLOOD UREA NITROGEN 15 MG/DL (7-18); CALCIUM LEVEL 9.3 MG/DL (8.8-10.2); CARBON DIOXIDE LEVEL 31 MEQ/L (21-32); CHLORIDE LEVEL 105 MEQ/L (98-107); CREATININE FOR GFR 0.91 MG/DL (0.70-1.30); GLOMERULAR FILTRATION RATE > 60.0 (>49); GLUCOSE, FASTING 125 MG/DL (70-100); POTASSIUM SERUM 3.6 MEQ/L (3.5-5.1); SODIUM LEVEL 142 MEQ/L (136-145)
[2021-02-14] MEDS ORDERED: POTASSIUM CHLORIDE 10 MEQ SR TABLET PO ONE (08:00)
[2021-02-14] MEDS: HumaLOG INSULIN (NovoLOG) PER UNIT SC SCH (09:26)
[2021-02-14] MEDS: ASPIRIN 81MG ENTERIC TABLET PO SCH (09:26)
[2021-02-14] MEDS: LEVEMIR (INSULIN DETEMIR) 1 UNITS/0.01ML SC SCH (09:26)
[2021-02-14 09:30] VITALS: BP 121/58
--- NOTE | 2021-02-14 10:19 | DS.PDOC ---
Discharge Summary General Date of Admission Feb 13, 2021 at 03:12 Date of Discharge Feb 14, 2021 Discharge Summary PROCEDURES PERFORMED DURING STAY: None. ADMITTING DIAGNOSES: 1. Acute decompensated heart failure with preserved ejection fraction 2. Asymptomatic bradycardia 2/2 beta shama 3. Insulin dependent diabetes mellitus 4. Hypertension 5. Dyslipidemia 6. Obesity DISCHARGE DIAGNOSES: 1. Acute decompensated heart failure with preserved ejection fraction 2. Asymptomatic bradycardia 2/2 beta shama 3. Insulin dependent diabetes mellitus 4. Hypertension 5. Dyslipidemia 6. Obesity COMPLICATIONS/CHIEF COMPLAINT: Bradycardia,Right Side Heart Failure. 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 Despite the change in his medications over the last 5 days he has been feeling more short of breath, especially with exertion. He has difficulties sleeping at night because of the dyspnea and has use 2 pillows to prop his head up. He has been experiencing chest heaviness, a cough and lower leg swelling (the right LE is chronically more swollen than the left he has had US in the past that were neg for DVT). " HOSPITAL COURSE: Mr. Rodriguez was aggressively diuresed and removed more than 3L. Respiratory edward, he was feeling better and was able to ambulate without problems. Otherwise, his last dose of nadolol was evening, and his heart rate was still in the 40s. I was able to have him ambulate and march in place and heart rate increased to 50s. He denies any lightheadedness, chest pain, or shortness of breath. He felt well and felt ready for home despite his low blood pressure. I discussed this with Dr. Wilks. He was okay with the patient going home and following up outpatient in his clinic. Patient was subsequently discharged home and his nadolol was discontinued. I instructed the patient to monitor his heart rate at home. He can use a blood pressure cuff to spot check his heart rate. If his heart rate increased up to 80s, he can restart nadolol at a lower dosage such as nadolol 40mg qHS. DISCHARGE MEDICATIONS: Please see below. ALLERGIES: Please see below. PHYSICAL EXAMINATION ON DISCHARGE: VITAL SIGNS: Please see below. GENERAL: Comfortable, in no apparent distress. HEENT: Head normocephalic/atraumatic, EOMI, sclera clear. NECK: Supple. RESPIRATORY: Lungs clear to auscultation bilaterally, no rales, wheeze or rhonchi. CARDIOVASCULAR: Bradycardic, but regular rhythm. ABDOMEN: Soft, nontender, no guarding or rebound tenderness. Normal bowel sounds. MUSCLE SKELETAL: Muscle strength 5/5 in all extremities. NEUROLOGICAL: CN 312 grossly intact, no focal deficits noted. PSYCHOLOGICAL: Normal mood and affect LABORATORY DATA: Please see below. IMAGING: Radiologist interpretation/impression CT angiogram chest FINDINGS: Pulmonary arteries: Contrast opacification satisfactory. No intraluminal filling defect. Aorta: Mild atherosclerotic disease. No aneurysm or dissection. Veins: Reflux of contrast into the IVC and intrahepatic veins, suggesting right-sided heart failure. Lungs: Patchy areas of ground-glass infiltration with associated septal and peribronchial thickening, suggestive of edema. No consolidation. Pleural spaces: Small pleural effusions. No pneumothorax. Heart: Mild cardiomegaly. No pericardial effusion. Lymph nodes: Mildly prominent mediastinal and bilateral hilar lymph nodes, likely reactive. Gallbladder and bile ducts: Cholelithiasis. Bones/joints: No acute osseous abnormality. Mild degenerative changes. Soft tissues: Unremarkable. IMPRESSION: 1. No CT evidence of pulmonary embolism. 2. Cardiomegaly with evidence of right-sided heart failure, small pleural effusions and mild edema. 3. Additional findings, as above. Ultrasound lower extremities bilaterally IMPRESSION: No sonographic evidence of deep vein thrombosis. PROGNOSIS: Good ACTIVITY: As tolerated. DIET: Carbohydrate consistent diet and 2 g sodium diet DISCHARGE PLAN: Home DISPOSITION: Home. DISCHARGE INSTRUCTIONS: 1. Follow-up with her PCP within a week 2. Referral to Dr. Wilks's office ITEMS TO FOLLOWUP ON ON OUTPATIENT: 1. Heart rate 2. Fluid balance 3. Echocardiogram results DISCHARGE CONDITION: Stable Total time spent on discharge planning, discharge summary, medication reconciliation: 50 minutes Vital Signs/I&Os Vital Signs Date Time Temp Pulse Resp B/P (MAP) Pulse Ox O2 Delivery O2 Flow Rate FiO2 02/14/21 09:30 121/58 (79) 02/14/21 06:00 97.6 45 17 95 NIPPV (BIPAP/CPAP) 02/13/21 20:35 2.0 I&O- Last 24 Hours up to 6 AM 02/14/21 05:59 Output Total 3150 ml Balance -3150 ml Laboratory Data Labs 24H Laboratory Tests 2 02/13/21 12:10: Anion Gap 6L, Glomerular Filtration Rate > 60.0, Calcium Level 9.6, Magnesium Level 2.0, Troponin I < 0.02 02/13/21 13:42: Bedside Glucose (Misc Panel) 107 02/13/21 17:20: Bedside Glucose (Misc Panel) 105 02/13/21 20:54: Bedside Glucose (Misc Panel) 115 02/13/21 21:24: Anion Gap 5L, Glomerular Filtration Rate > 60.0, Calcium Level 9.3 02/14/21 05:44: Anion Gap 6L, Glomerular Filtration Rate > 60.0, Calcium Level 9.3, Nucleated Red Blood Cells % (auto) 0.0 CBC/BMP Laboratory Tests 02/13/21 12:10 02/13/21 21:24 02/14/21 05:44 FSBS Laboratory Tests Test 02/13/21 13:42 02/13/21 17:20 02/13/21 20:54 Range/Units Bedside Glucose (Misc Panel) 107 105 115 80-115 MG/DL Microbiology Microbiology 02/13/21 Respiratory Virus Panel (PCR) ([facility]) - Final, Complete Discharge Medications Scheduled Amiloride HCl (Amiloride HCl) 5 Mg Tablet, 5 MG PO DAILY, (Reported) Aspirin (Aspirin EC) 81 Mg Tablet.dr, 81 MG PO DAILY, (Reported) Atorvastatin Calcium (Atorvastatin Calcium) 40 Mg Tab, 40 MG PO QHS, (Reported) Cholecalciferol (Vitamin D3) (Vitamin D3) 50 Mcg Capsule, 50 MCG PO DAILY, (Reported) Dulaglutide (Trulicity) 0.75 Mg/0.5 Ml Pen.injctr, 0.75 MG SC QWEEK, (Reported) MONDAYS Furosemide (Furosemide) 40 Mg Tablet, 40 MG PO DAILY Insulin Detemir (Levemir Flextouch) 100 Unit/Ml Inj, 50 UNITS SC BID, (Reported) Losartan Potassium (Losartan Potassium) 25 Mg Tablet, 25 MG PO QHS, (Reported) Lutein (Lutein) 20 Mg Cap, 20 MG PO DAILY, (Reported) [place]-3 Fatty Acids/Fish Oil (Fish Oil 1,000 mg Capsule) 1 Each Capsule, 1,000 MG PO DAILY, (Reported) Pioglitazone HCl (Actos) 30 Mg Tab, 30 MG PO QHS, (Reported) Potassium Bicarbonate/Cit AC (Effer-K 20 Meq Tablet Eff) 20 Meq Tablet.eff, 1 TAB PO BID, (Reported) Rivaroxaban (Xarelto) 20 Mg Tab, 20 MG PO QHS, (Reported) Sodium Bicarbonate (Sodium Bicarbonate) 650 Mg Tab, 650 MG PO TID, (Reported) Vit A/Vit C/Vit E/Zinc/Copper (Preservision Areds Softgel) 1 Each Capsule, 1 CAP PO DAILY, (Reported) Scheduled PRN Cyclosporine (Restasis) 0.05% Droperette, 1 DROP OU BID PRN for DRY EYES, (Reported) Allergies Coded Allergies: Sulfa (Sulfonamide Antibiotics) (Verified Allergy, Unknown, 11/28/18) metformin (Verified Allergy, Unknown, 02/12/21) ramipril (Verified Allergy, Unknown, 02/12/21) SERENA ORTEGA DO Feb 14, 2021 10:19
[2021-02-14] MEDS ORDERED: FURO40TA2 PO (12:53)
--- NOTE | 2021-02-16 16:04 | ECHO ---
ECHOCARDIOGRAM DATE OF PROCEDURE: 02/14/2021 Age: Gender: Height: 168 cm Weight: 128 kg REFERRING PHYSICIAN: Dr. Yong Alicea INDICATION: Cardiac dysrhythmias, unspecified. 2D MEASUREMENTS: Left ventricle diastole 5.2 cm Ventricular septum 1.37 cm Posterior wall 1.43 cm Left atrium 5.7 cm Aortic root 3.0 cm Aortic annulus 2.5 cm Inferior vena cava 2.2 cm with normal respiratory variation DOPPLER MEASUREMENTS No aortic stenosis. No aortic regurgitation. Aortic valve velocity 108 cm/s LVOT velocity 112 cm/s LVOT VTI 23.9 cm No mitral regurgitation. Mitral E velocity 129 cm/s Mitral deceleration time 151 msec Trace tricuspid regurgitation No pulmonic regurgitation Pulmonary relaxation time 100 msec DESCRIPTION: Rhythm was a junctional rhythm with underlying atrial fibrillation. Observed heart rates were primarily between 39-42 beats per minute (BPM). No pericardial effusion. Appearance of right bundle branch block morphology. This was a moderately technically difficult echocardiogram. This was a 2D, M-mode, color flow Doppler, and pulsed wave Doppler examination. CONCLUSIONS: 1. Mild concentric left ventricular hypertrophy. Normal regional LV wall motion and wall thickening. Normal LV systolic function. LVEF of 60% by visual assessment. 2. Severe left atrial dilatation. 3. Very mild mitral annular calcification. No mitral regurgitation. 4. Mild aortic valve sclerosis of a 3-cuspid aortic valve. No aortic regurgitation. 5. Suggestive of mild elevation of pulmonary artery systolic pressure.
== END 2021-02-14 10:25 | disposition home or self-care (01) | DRG 293 ==
LOC: M ED 23:08 → M ED INP 02-13 03:12 → ENRESERV 02-13 18:32 → M MSPAV 02-13 20:35
PROVIDERS: ADMIT Internal Medicine; ATTEND Internal Medicine
DX: I11.0 Hypertensive heart disease with heart failure (principal); I50.9 Heart failure, unspecified; E66.9 Obesity, unspecified; E78.5 Hyperlipidemia, unspecified; E11.9 Type 2 diabetes mellitus without complications; R00.1 Bradycardia, unspecified; Z79.82 Long term (current) use of aspirin; Z79.899 Other long term (current) drug therapy; Z79.4 Long term (current) use of insulin; Z88.2 Allergy status to sulfonamides; Z88.8 Allergy status to other drugs, medicaments and biological substances; G47.33 Obstructive sleep apnea (adult) (pediatric); I48.91 Unspecified atrial fibrillation; D64.9 Anemia, unspecified

== ENCOUNTER → 2021-02-20 | Outpatient (CLI) | payer OTHER ==
[~2021-02-20] MED LIST changes: +ASPI-161 PO; +D32000CA PO; +EFFE20TA PO; +FISH1000 PO; +FURO40TA2 PO; +REST0.05 OU
[2021-02-20 13:33] LABS: ALBUMIN 3.7 GM/DL (3.2-5.2); BILIRUBIN,DIRECT 0.4 MG/DL (0.0-0.2); BILIRUBIN,TOTAL 1.7 MG/DL (0.2-1.0); BLOOD UREA NITROGEN 11 MG/DL (7-18); CALCIUM LEVEL 9.6 MG/DL (8.8-10.2); CARBON DIOXIDE LEVEL 33 MEQ/L (21-32); CHLORIDE LEVEL 108 MEQ/L (98-107); CREATININE FOR GFR 0.93 MG/DL (0.70-1.30); GLOMERULAR FILTRATION RATE > 60.0 (>49); GLUCOSE, FASTING 73 MG/DL (70-100); MAGNESIUM LEVEL 2.1 MG/DL (1.8-2.4); NT-PRO BNP 1051 PG/ML (<125); POTASSIUM SERUM 4.7 MEQ/L (3.5-5.1); SODIUM LEVEL 143 MEQ/L (136-145)
== END ==
LOC: M LAB 12:13
PROVIDERS: ATTEND Internal Medicine Cardiovascular Disease
DX: I50.32 Chronic diastolic (congestive) heart failure (principal)

== ENCOUNTER → 2021-02-27 | Outpatient (CLI) | payer OTHER ==
[2021-02-27 15:38] LABS: BILIRUBIN,TOTAL 3.3 MG/DL (0.2-1.0); BLOOD UREA NITROGEN 17 MG/DL (7-18); CALCIUM LEVEL 10.5 MG/DL (8.8-10.2); CARBON DIOXIDE LEVEL 30 MEQ/L (21-32); CHLORIDE LEVEL 100 MEQ/L (98-107); CREATININE FOR GFR 0.92 MG/DL (0.70-1.30); GLOMERULAR FILTRATION RATE > 60.0 (>49); GLUCOSE, FASTING 82 MG/DL (70-100); MAGNESIUM LEVEL 2.4 MG/DL (1.8-2.4); NT-PRO BNP 458 PG/ML (<125); SODIUM LEVEL 137 MEQ/L (136-145)
== END ==
LOC: M LAB 13:54
PROVIDERS: ATTEND Internal Medicine Cardiovascular Disease
DX: I50.32 Chronic diastolic (congestive) heart failure (principal)

== ENCOUNTER → 2021-03-26 | Outpatient (CLI) | payer OTHER ==
[2021-03-26 13:19] LABS: BILIRUBIN,DIRECT 0.4 MG/DL (0.0-0.2); BILIRUBIN,TOTAL 1.7 MG/DL (0.2-1.0); BLOOD UREA NITROGEN 13 MG/DL (7-18); CALCIUM LEVEL 9.6 MG/DL (8.8-10.2); CARBON DIOXIDE LEVEL 34 MEQ/L (21-32); CHLORIDE LEVEL 105 MEQ/L (98-107); CREATININE FOR GFR 0.96 MG/DL (0.70-1.30); GLOMERULAR FILTRATION RATE > 60.0 (>49); GLUCOSE, FASTING 77 MG/DL (70-100); NT-PRO BNP 1261 PG/ML (<125); POTASSIUM SERUM 3.9 MEQ/L (3.5-5.1); SODIUM LEVEL 143 MEQ/L (136-145)
== END ==
LOC: M LAB 12:09
PROVIDERS: ATTEND Internal Medicine Cardiovascular Disease
DX: I50.32 Chronic diastolic (congestive) heart failure (principal)

== ENCOUNTER 2021-04-14 20:31 | Emergency (ER) | payer MEDICARE, OTHER ==
[~2021-04-14] VITALS: Ht 167.6 cm; Wt 109.1 kg
[2021-04-14] MEDS ORDERED: FARX1TAB3 PO (20:49)
[2021-04-14] MEDS ORDERED: SM STAB3 PO (20:49)
[2021-04-14] MEDS ORDERED: TORS20TA2 PO (20:49)
--- NOTE | 2021-04-14 23:23 | REPVR ---
PROCEDURE INFORMATION: Exam: XR Right Hand Exam date and time: 04/14/2021 10:49 PM Age: 66 years old Clinical indication: Pain; Hand; Right; Additional info: Swelling to hand and cannot move the hand TECHNIQUE: Imaging protocol: XR Right hand. Views: 3 or more views. COMPARISON: No relevant prior studies available. FINDINGS: Bones/joints: Early degenerative change at the interphalangeal joint of the thumb. Joint space narrowing and slight subluxation at the 3rd metacarpophalangeal joint and slight spurring of the 3rd metacarpal head. Soft tissues: Slight soft tissue edema of the hand. IMPRESSION: 1. Mild degenerative change at the interphalangeal joint of the thumb and the 3rd metacarpophalangeal joint. 2. Slight soft tissue edema of the hand. 3. Otherwise negative right hand. Electronically signed by: Jorge Murillo On 04/14/2021 23:23:13 PM
[2021-04-15 01:09] VITALS: BP 147/67
[2021-04-15] MEDS ORDERED: COLCHICINE 0.6 MG TABLET PO ONE (01:25)
[2021-04-15 01:45] LABS: BASO % 0.3 % (0.0-1.0); EOS % 0.4 % (0.0-3.0); HEMATOCRIT 48.6 % (42.0-52.0); HEMOGLOBIN 15.4 g/dl (13.5-17.5); LYMPH # 1.1 10^3/uL (1.5-5.0); LYMPH % 10.6 % (24.0-44.0); MEAN CORPUSCULAR HEMOGLOBIN 27.7 pg (27.0-33.0); MEAN CORPUSCULAR HGB CONC 31.7 g/dl (32.0-36.5); MEAN CORPUSCULAR VOLUME 87.6 fl (80.0-96.0); MONO # 1.1 10^3/uL (0.0-0.8); MONO % 10.3 % (2.0-8.0); NEUTROPHILS # 8.4 10^3/uL (1.5-8.5); NEUTROPHILS % 78.1 % (36.0-66.0); PLATELET COUNT, AUTOMATED 179 10^3/uL (150-450); RED BLOOD COUNT 5.55 10^6/uL (4.30-6.10); WHITE BLOOD COUNT 10.8 10^3/uL (4.0-10.0)
[2021-04-15 02:03] LABS: C REACTIVE PROTEIN QUANTITATIV 6.38 MG/DL (0.00-0.30); URIC ACID 7.5 MG/DL (3.5-7.2)
[2021-04-15] MEDS ORDERED: KETOROLAC 30 MG/ML 1ML VIAL IV ONE (02:40)
[2021-04-15] MEDS ORDERED: PRED20TA PO (04:44)
== END 2021-04-15 04:58 | disposition home or self-care (01) ==
LOC: M ED 20:31
DX: M79.641 Pain in right hand (principal); M19.041 Primary osteoarthritis, right hand; I48.91 Unspecified atrial fibrillation; E11.9 Type 2 diabetes mellitus without complications; I10 Essential (primary) hypertension; G47.33 Obstructive sleep apnea (adult) (pediatric); Z88.1 Allergy status to other antibiotic agents; Z88.2 Allergy status to sulfonamides; Z88.8 Allergy status to other drugs, medicaments and biological substances; Z79.82 Long term (current) use of aspirin; Z79.899 Other long term (current) drug therapy
CPT/HCPCS: 73130; 80047; 84550; 85025; 85652; 86140; 96374; 99283; J1885

== ENCOUNTER → 2021-04-23 | Outpatient (CLI) | payer MEDICARE, OTHER ==
[~2021-04-23] MED LIST changes: +FARX1TAB3 PO; +PRED20TA PO; +SM STAB3 PO; +TORS20TA2 PO
[2021-04-23 11:14] LABS: BASO % 0.2 % (0.0-1.0); EOS # 0.1 10^3/uL (0.0-0.5); EOS % 1.6 % (0.0-3.0); HEMATOCRIT 48.9 % (42.0-52.0); HEMOGLOBIN 15.6 g/dl (13.5-17.5); LYMPH # 1.1 10^3/uL (1.5-5.0); LYMPH % 13.4 % (24.0-44.0); MEAN CORPUSCULAR HEMOGLOBIN 27.7 pg (27.0-33.0); MEAN CORPUSCULAR HGB CONC 31.9 g/dl (32.0-36.5); MEAN CORPUSCULAR VOLUME 86.7 fl (80.0-96.0); MONO # 0.7 10^3/uL (0.0-0.8); MONO % 8.1 % (2.0-8.0); NEUTROPHILS # 6.5 10^3/uL (1.5-8.5); NEUTROPHILS % 76.2 % (36.0-66.0); PLATELET COUNT, AUTOMATED 220 10^3/uL (150-450); RED BLOOD COUNT 5.64 10^6/uL (4.30-6.10); WHITE BLOOD COUNT 8.5 10^3/uL (4.0-10.0)
[2021-04-23 11:34] LABS: ERYTHROCYTE SEDIMENTATION RATE 4 mm/hr (0-20)
[2021-04-24 17:07] LABS: Lyme Disease IgG/IgM Antibodie <0.91 ISR (0.00-0.90); Lyme Disease IgM Ab Quantitati <0.80 index (0.00-0.79)
== END ==
LOC: M LAB 10:13
PROVIDERS: ATTEND Physician Assistant
DX: M65.4 Radial styloid tenosynovitis [de Quervain] (principal); Z79.899 Other long term (current) drug therapy

== ENCOUNTER → 2021-05-01 | Outpatient (CLI) | payer MEDICARE, OTHER ==
--- NOTE | 2021-05-01 09:46 | REP ---
INDICATION: CALCULUS OF KIDNEY. COMPARISON: CT 12/27/2020, ultrasound 02/18/2011. TECHNIQUE: Real-time sonographic evaluation of the kidneys is performed. FINDINGS: Renal cortical echogenicity pattern is normal bilaterally and contours are smooth. There is no hydronephrosis bilaterally. There is a simple cyst in the lower pole the right kidney 2.9 x 3.1 x 2.9 cm. No large renal calculus is seen bilaterally. The right kidney measures 10.5 x 5.4 x 7.0 cm. Left renal dimensions are 10.8 x 5.2 x 5.7 cm. The urinary bladder is unremarkable. Ureteral jets are not seen in the urinary bladder with Doppler color evaluation. Prostate measures 5.0 x 3.7 x 3.9 cm, total volume 38 cc. IMPRESSION: No hydronephrosis. No large renal calculus. Right renal cyst. <Electronically signed by Liam Mercer > 05/01/21 [id number]
== END ==
LOC: M RAD 08:58
PROVIDERS: ATTEND Urology
DX: N28.1 Cyst of kidney, acquired (principal); N20.0 Calculus of kidney

== ENCOUNTER → 2021-06-10 | Outpatient (REF) | payer MEDICARE, OTHER ==
[2021-06-10 13:04] LABS: % LABILE ALKALINE PHOSPHATASE 55.7 %
== END ==
LOC: M LAB REF 11:13
PROVIDERS: ATTEND Family Medicine
DX: R74.8 Abnormal levels of other serum enzymes (principal)

== ENCOUNTER → 2021-07-17 | Outpatient (CLI) | payer MEDICARE, OTHER ==
[2021-07-17 10:58] LABS: ALBUMIN 3.9 GM/DL (3.2-5.2); BILIRUBIN,DIRECT 0.3 MG/DL (0.0-0.2); BILIRUBIN,TOTAL 1.1 MG/DL (0.2-1.0); BLOOD UREA NITROGEN 15 MG/DL (7-18); CALCIUM LEVEL 9.6 MG/DL (8.8-10.2); CARBON DIOXIDE LEVEL 30 MEQ/L (21-32); CHLORIDE LEVEL 104 MEQ/L (98-107); CREATININE FOR GFR 0.94 MG/DL (0.70-1.30); GLOMERULAR FILTRATION RATE > 60.0 (>49); GLUCOSE, FASTING 109 MG/DL (70-100); NT-PRO BNP 307 PG/ML (<125); PHOSPHORUS LEVEL 3.9 MG/DL (2.5-4.9); POTASSIUM SERUM 3.9 MEQ/L (3.5-5.1); SODIUM LEVEL 142 MEQ/L (136-145)
== END ==
LOC: M LAB 08:55
PROVIDERS: ATTEND Internal Medicine Cardiovascular Disease
DX: I50.32 Chronic diastolic (congestive) heart failure (principal)

== ENCOUNTER → 2021-07-17 | Outpatient (CLI) | payer MEDICARE, OTHER ==
--- NOTE | 2021-07-17 09:50 | REP ---
INDICATION: SPONDYLOSIS W/O MYELOPATHY OR RADICULOPATHY, CERVICAL REGION COMPARISON: None. TECHNIQUE: AP, lateral, flexion/extension, bilateral oblique, swimmer's and open-mouth views. FINDINGS: Alignment and lordosis is maintained. There is no evidence for acute fracture / compression injury or subluxation. Minimal generalized age-related changes are appreciated without overt discogenic spondylosis. Oblique views demonstrate patent neural foramen. Open mouth view demonstrates normal C1-C2 articulation and odontoid process. IMPRESSION: Essentially normal age-appropriate cervical spine series. <Electronically signed by Rodney Hart > 07/17/21 0339
== END ==
LOC: M RAD 08:57
PROVIDERS: ATTEND Nurse Practitioner Family
DX: M47.812 Spondylosis without myelopathy or radiculopathy, cervical region (principal)

== ENCOUNTER → 2021-08-05 | Outpatient (CLI) | payer MEDICARE, OTHER ==
[2021-08-05 11:30] LABS: C REACTIVE PROTEIN QUANTITATIV 0.88 MG/DL (0.00-0.30); RHEUMATOID FACTOR QUANT < 10.0 IU/ML (<15.0); URIC ACID 7.1 MG/DL (3.5-7.2)
== END ==
LOC: M LAB 10:13
PROVIDERS: ATTEND Physician Assistant
DX: M25.441 Effusion, right hand (principal)

== ENCOUNTER 2021-08-12 08:49 | Outpatient (CLI) | payer MEDICARE, OTHER ==
[~2021-08-12] VITALS: Ht 167.6 cm; Wt 102.0 kg
[~2021-08-12 08:49] MED LIST changes: +ALBUTEROL 90 MCG/ACT 8GM HFA INHALER INH PRN; +ALBUTEROL SULFATE 2.5 MG/0.5 ML INH NEB SOLN INH PRN; +EPINEPHrine INJ 1 MG/ML 1ML AMP IM PRN; +NS 1,000 ML IV SCH; +diphenhydrAMINE 50MG/ML VIAL (J1200) IV PRN; +methylPREDNISolone 125MG 2ML VIAL IV PRN
[2021-08-12 09:22] VITALS: BP 127/61
[2021-08-12] MEDS ORDERED: CASIRIVIMAB/IMDEVIMAB 1,200 MG in NS 250 ML IV ONE (09:30)
[2021-08-12 09:52] VITALS: BP 103/56
[2021-08-12 10:22] VITALS: BP 124/69
[2021-08-12 11:22] VITALS: BP 129/67
== END 2021-08-12 11:22 | disposition home or self-care (01) ==
LOC: M OPCLI4PR 08:49
PROVIDERS: ATTEND Physician Assistant Medical
DX: U07.1 COVID-19 (principal); Z88.2 Allergy status to sulfonamides; Z88.8 Allergy status to other drugs, medicaments and biological substances

== ENCOUNTER → 2021-09-29 | Outpatient (REF) | payer MEDICARE, OTHER ==
[~2021-09-29] MED LIST changes: -ALBUTEROL 90 MCG/ACT 8GM HFA INHALER INH PRN; -ALBUTEROL SULFATE 2.5 MG/0.5 ML INH NEB SOLN INH PRN; -EPINEPHrine INJ 1 MG/ML 1ML AMP IM PRN; +LOSA25TA13 PO; -LOSA25TA14 PO; -NS 1,000 ML IV SCH; -diphenhydrAMINE 50MG/ML VIAL (J1200) IV PRN; -methylPREDNISolone 125MG 2ML VIAL IV PRN
== END ==
LOC: M LAB REF 16:28
PROVIDERS: ATTEND Ophthalmology
DX: H57.89 Other specified disorders of eye and adnexa (principal)

== ENCOUNTER → 2021-10-27 | Outpatient (CLI) | payer MEDICARE, OTHER | LOC: M RAD 06:17 | PROVIDERS: ATTEND Nurse Practitioner Family | DX: M50.30 Other cervical disc degeneration, unspecified cervical region (principal) ==

== ENCOUNTER → 2021-11-02 | Outpatient (CLI) | payer MEDICARE, OTHER | LOC: M RAD 09:24 | PROVIDERS: ATTEND Family Medicine | DX: R94.5 Abnormal results of liver function studies (principal); K76.0 Fatty (change of) liver, not elsewhere classified; K80.20 Calculus of gallbladder without cholecystitis without obstruction ==

== ENCOUNTER → 2022-04-26 | Outpatient (CLI) | payer MEDICARE, OTHER | LOC: M RAD 10:19 | PROVIDERS: ATTEND Physician Assistant Medical | DX: R05.9 Cough, unspecified (principal); R06.02 Shortness of breath ==

== ENCOUNTER → 2022-07-06 | Outpatient (REF) | payer MEDICARE, OTHER | LOC: M LAB REF 11:47 | PROVIDERS: ATTEND Physician Assistant | DX: H04.331 Acute lacrimal canaliculitis of right lacrimal passage (principal) ==

== ENCOUNTER → 2022-07-15 | Outpatient (CLI) | payer MEDICARE, OTHER | LOC: M RAD 06:58 | PROVIDERS: ATTEND Family Medicine | DX: R74.8 Abnormal levels of other serum enzymes (principal) | CPT/HCPCS: 78306; A9503 ==

== ENCOUNTER → 2022-08-02 | Outpatient (CLI) | payer MEDICARE, OTHER | LOC: M RAD 06:54 | PROVIDERS: ATTEND Nurse Practitioner Family | DX: M54.16 Radiculopathy, lumbar region (principal); M51.36 Other intervertebral disc degeneration, lumbar region ==

== ENCOUNTER → 2022-11-08 | Outpatient (REF) | payer MEDICARE, OTHER ==
[~2022-11-08] MED LIST changes: +INSU100I6 SC; -LEVE1INJ5 SC
== END ==
LOC: M SFHCDERM 14:08
PROVIDERS: ATTEND Physician Assistant
DX: L57.0 Actinic keratosis (principal)

== ENCOUNTER → 2023-05-06 | Outpatient (CLI) | payer MEDICARE, OTHER ==
[2023-05-07 19:07] LABS: PSA % FREE 18.4 % (.); PSA FREE 0.81 ng/mL; PSA TOTAL 4.4 ng/mL (0.0-4.0)
== END ==
LOC: M LAB 09:17
PROVIDERS: ATTEND Student in an Organized Health Care Education/Training Program
DX: R97.20 Elevated prostate specific antigen [PSA] (principal)

== ENCOUNTER → 2023-09-30 | Outpatient (REF) | payer MEDICARE, OTHER ==
[~2023-09-30] MED LIST changes: +IRBE75TA11 PO; -IRBE75TA4 PO
== END ==
LOC: M LAB REF 10:22
PROVIDERS: ATTEND Family Medicine
DX: I48.20 Chronic atrial fibrillation, unspecified (principal)

== ENCOUNTER → 2023-12-08 | Outpatient (REF) | payer MEDICARE, OTHER ==
[~2023-12-08] MED LIST changes: -ASPI-161 PO; +ASPI-615 PO
== END ==
LOC: M LAB REF 17:09
PROVIDERS: ATTEND Family Medicine
DX: M17.12 Unilateral primary osteoarthritis, left knee (principal)

== ENCOUNTER → 2023-12-08 | Outpatient (REF) | payer MEDICARE, OTHER ==
[2023-12-08 13:15] LABS: SOURCE, BODY FLUID LFT KNEE; SYNOVIAL FLUID COLOR RED (COLORLESS)
[2023-12-08 13:59] LABS: CRYSTALS, BODY FLUID NONE SEEN (NONE SEEN); SOURCE, BODY FLUID CRYSTALS LFT KNEE
[2023-12-08 14:22] LABS: SOURCE, BODY FLUID GLUCOSE LFT KNEE
== END ==
LOC: M LAB REF 12:24
PROVIDERS: ATTEND Orthopaedic Surgery
DX: M25.462 Effusion, left knee (principal)

== ENCOUNTER → 2023-12-09 | Outpatient (CLI) | payer MEDICARE, OTHER | LOC: M LAB 14:58 | PROVIDERS: ATTEND Urology | DX: R97.20 Elevated prostate specific antigen [PSA] (principal); Z12.5 Encounter for screening for malignant neoplasm of prostate | CPT/HCPCS: 36415; G0103 ==

== ENCOUNTER → 2023-12-27 | Outpatient (CLI) | payer MEDICARE, OTHER ==
[2023-12-27 10:53] LABS: BASO % 0.3 % (0.0-1.0); EOS # 0.1 10^3/uL (0.0-0.5); EOS % 1.2 % (0.0-3.0); HEMATOCRIT 50.1 % (42.0-52.0); LYMPH # 1.9 10^3/uL (1.5-5.0); LYMPH % 16.4 % (24.0-44.0); MEAN CORPUSCULAR HEMOGLOBIN 28.7 pg (27.0-33.0); MEAN CORPUSCULAR HGB CONC 33.9 g/dl (32.0-36.5); MEAN CORPUSCULAR VOLUME 84.5 fl (80.0-96.0); MONO # 1.1 10^3/uL (0.0-0.8); MONO % 9.7 % (2.0-8.0); NEUTROPHILS # 8.4 10^3/uL (1.5-8.5); NEUTROPHILS % 72.1 % (36.0-66.0); PLATELET COUNT, AUTOMATED 168 10^3/uL (150-450); RED BLOOD COUNT 5.93 10^6/uL (4.30-6.10); WHITE BLOOD COUNT 11.7 10^3/uL (4.0-10.0)
[2023-12-27 11:01] LABS: ERYTHROCYTE SEDIMENTATION RATE 24 mm/hr (0-20)
[2023-12-27 11:26] LABS: C REACTIVE PROTEIN QUANTITATIV 3.2 MG/DL (<1.0)
[2023-12-27 11:28] LABS: RHEUMATOID FACTOR QUANT 9.2 IU/ML (<14)
[2023-12-27 14:01] LABS: CRYSTALS, BODY FLUID NONE SEEN (NONE SEEN); SOURCE, BODY FLUID CRYSTALS LFT KNEE
[2023-12-27 14:28] LABS: SOURCE, BODY FLUID GLUCOSE LFT KNEE
[2023-12-27 14:41] LABS: SOURCE, BODY FLUID LFT KNEE
[2023-12-27 14:42] LABS: SYNOVIAL FLUID COLOR AMBER (COLORLESS)
== END ==
LOC: M LAB 09:06
PROVIDERS: ATTEND Physician Assistant
DX: M25.462 Effusion, left knee (principal)

== ENCOUNTER → 2023-12-30 | Outpatient (CLI) | payer MEDICARE, OTHER ==
[2023-12-30 14:23] LABS: BASO % 0.5 % (0.0-1.0); EOS # 0.2 10^3/uL (0.0-0.5); EOS % 2.1 % (0.0-3.0); HEMATOCRIT 47.7 % (42.0-52.0); HEMOGLOBIN 16.5 g/dl (13.5-17.5); LYMPH # 1.9 10^3/uL (1.5-5.0); LYMPH % 22.2 % (24.0-44.0); MEAN CORPUSCULAR HEMOGLOBIN 29.3 pg (27.0-33.0); MEAN CORPUSCULAR HGB CONC 34.6 g/dl (32.0-36.5); MEAN CORPUSCULAR VOLUME 84.6 fl (80.0-96.0); MONO # 0.8 10^3/uL (0.0-0.8); MONO % 8.6 % (2.0-8.0); NEUTROPHILS # 5.8 10^3/uL (1.5-8.5); NEUTROPHILS % 66.5 % (36.0-66.0); PLATELET COUNT, AUTOMATED 207 10^3/uL (150-450); RED BLOOD COUNT 5.64 10^6/uL (4.30-6.10); WHITE BLOOD COUNT 8.7 10^3/uL (4.0-10.0)
[2023-12-30 14:49] LABS: ERYTHROCYTE SEDIMENTATION RATE 39 mm/hr (0-20)
== END ==
LOC: M LAB 13:56
PROVIDERS: ATTEND Physician Assistant
DX: M17.12 Unilateral primary osteoarthritis, left knee (principal); M65.862 Other synovitis and tenosynovitis, left lower leg; M25.462 Effusion, left knee

== ENCOUNTER → 2024-01-16 | Outpatient (REF) | payer MEDICARE, OTHER ==
[2024-01-16 16:07] LABS: SOURCE, BODY FLUID GLUCOSE LFT KNEE
[2024-01-16 16:14] LABS: SOURCE, BODY FLUID LFT KNEE; SYNOVIAL FLUID COLOR RED (COLORLESS)
[2024-01-16 16:51] LABS: CRYSTALS, BODY FLUID NONE SEEN (NONE SEEN); SOURCE, BODY FLUID CRYSTALS LFT KNEE
== END ==
LOC: M LAB REF 14:56
PROVIDERS: ATTEND Physician Assistant
DX: M17.12 Unilateral primary osteoarthritis, left knee (principal)

== ENCOUNTER → 2024-02-01 | Outpatient (CLI) | payer MEDICARE, OTHER ==
[2024-02-01 15:45] LABS: BASO # 0.1 10^3/uL (0.0-0.2); BASO % 0.5 % (0.0-1.0); EOS # 0.1 10^3/uL (0.0-0.5); EOS % 1.2 % (0.0-3.0); HEMATOCRIT 50.5 % (42.0-52.0); HEMOGLOBIN 16.6 g/dl (13.5-17.5); LYMPH # 2.2 10^3/uL (1.5-5.0); LYMPH % 20.1 % (24.0-44.0); MEAN CORPUSCULAR HEMOGLOBIN 28.2 pg (27.0-33.0); MEAN CORPUSCULAR HGB CONC 32.9 g/dl (32.0-36.5); MEAN CORPUSCULAR VOLUME 85.7 fl (80.0-96.0); MONO # 0.9 10^3/uL (0.0-0.8); MONO % 8.4 % (2.0-8.0); NEUTROPHILS # 7.5 10^3/uL (1.5-8.5); NEUTROPHILS % 69.5 % (36.0-66.0); PLATELET COUNT, AUTOMATED 199 10^3/uL (150-450); RED BLOOD COUNT 5.89 10^6/uL (4.30-6.10); WHITE BLOOD COUNT 10.7 10^3/uL (4.0-10.0)
[2024-02-01 15:53] LABS: ERYTHROCYTE SEDIMENTATION RATE 33 mm/hr (0-20)
[2024-02-01 16:07] LABS: C REACTIVE PROTEIN QUANTITATIV 2.3 MG/DL (<1.0)
[2024-02-01 16:10] LABS: RHEUMATOID FACTOR QUANT 5.9 IU/ML (<14)
== END ==
LOC: M RAD 13:34
PROVIDERS: ATTEND Physician Assistant
DX: R22.42 Localized swelling, mass and lump, left lower limb (principal); M17.12 Unilateral primary osteoarthritis, left knee

== ENCOUNTER → 2024-04-02 | Outpatient (CLI) | payer MEDICARE, OTHER | LOC: M WUC 14:35 | PROVIDERS: ATTEND Nurse Practitioner Family | DX: M79.642 Pain in left hand (principal) ==

== ENCOUNTER → 2024-06-12 | Outpatient (REF) | payer MEDICARE, OTHER | LOC: M LAB REF 20:33 | PROVIDERS: ATTEND Physician Assistant Medical | DX: R05.9 Cough, unspecified (principal) ==

== ENCOUNTER → 2024-09-01 | Outpatient (CLI) | payer MEDICARE, OTHER ==
[~2024-09-01] MED LIST changes: +NADO80TA PO; -NADO80TA5 PO
== END ==
LOC: M LAB 10:34
PROVIDERS: ATTEND Nurse Practitioner Family
DX: R97.20 Elevated prostate specific antigen [PSA] (principal)

== ENCOUNTER → 2024-11-14 | Outpatient (CLI) | payer MEDICARE, OTHER | LOC: M LAB 06:46 | PROVIDERS: ATTEND Internal Medicine Rheumatology | DX: Z79.899 Other long term (current) drug therapy (principal) ==

== ENCOUNTER → 2025-01-09 | Outpatient (CLI) | payer MEDICARE, OTHER | LOC: M RAD 07:36 | PROVIDERS: ATTEND Physician Assistant Medical | DX: R06.02 Shortness of breath (principal); R05.9 Cough, unspecified ==

== ENCOUNTER → 2025-04-02 | Outpatient (CLI) | payer MEDICARE, OTHER ==
[~2025-04-02] MED LIST changes: +ADAL40AU16 SC; +LANTINJ4 SC
== END ==
LOC: M LAB 14:45
PROVIDERS: ATTEND Nurse Practitioner Family
DX: R97.20 Elevated prostate specific antigen [PSA] (principal)

== ENCOUNTER → 2025-08-20 | Outpatient (CLI) | payer MEDICARE, OTHER | LOC: M PLAIMG 07:37 | PROVIDERS: ATTEND Physician Assistant | DX: I50.32 Chronic diastolic (congestive) heart failure (principal); I27.29 Other secondary pulmonary hypertension; I51.7 Cardiomegaly ==